=== PATIENT | male | born 1945 | race Caucasian/White ===

== ENCOUNTER 2020-08-02 19:18 | Inpatient (IN) | payer OTHER, MEDICARE, SELFPAY ==
[2020-08-02 20:01] VITALS: BMI 22.6
[2020-08-02 20:07] VITALS: BP 147/101; PULSE 79; RESP 18; TEMP 36.6; O2SAT 98
[2020-08-02 20:12] VITALS: BMI 22.7
[2020-08-02 20:21] VITALS: RESP 16; O2SAT 95
--- NOTE | 2020-08-02 20:45 | PCM.HP.STD ---
Problem List (1) Abnormal loss of weight Status: Acute (2) Fall Status: Acute (3) HLD (hyperlipidemia) Status: Chronic (4) HTN (hypertension) Status: Chronic (5) History of brain tumor Status: Chronic (6) Tobacco use Status: Chronic History of Present Illness Date of Admission: 08/02/20 Chief Complaint: Fall, generalized weakness The patient is a 75 year old [place] M with history of remote brain surgery 1998, benign tumor as per the patient, chronic smoker 1 pack/day since age of 15, other comorbidities as mentioned above went to [facility] pulmonary ED after he had a fall today. Patient states he has gait incoordination, balance and slow walking. Had mild lumbar back pain after fall. Patient is also slow to react, difficulty recall since probably mild cognitive deficit probably after brain surgery. As per EMS report, family also observed patient was acting not right for the last week and has not been eating or drinking lately. As per family, 1 month history of gradual weakness weight loss 20 pounds and decreased oral intake. Patient ambulation ability has significantly decreased in last 2 days. Vital signs in ED temperature 98.6 ?F, heart rate 64, BP 137/82, respiratory rate 18, pulse ox 99% on room air. Significant abnormal labs leukocytosis, WBC 12.9 thousand, mild lymphopenia. Hemoglobin 15.9, platelet 221,000. Chemistry shows K3.4, BUN/creatinine 14/1.0, bicarb 28.5. Glucose 107. Liver chemistry AST 107, ALT 39, alkaline phos 1.86. TB 0.7, albumin 3.0, globulin 4.8, A/G ratio 0.6. Lactic acid was elevated 2.3, repeat normal 1.9. Chest x-ray no acute cardiopulmonary findings. CT head left frontal encephalomalacia, atrophy, but no acute intracranial findings. CT abdomen with contrast reported large areas of abnormal attenuation of liver, suspect metastatic lesions. Nodule of left lung lobe. Pancreas, kidneys and spleen normal except left renal cyst. Negative for obstructive or inflammatory bowel disease. Enlarged prostate. Negative for adenopathy, DJD spine. As per report there is no mention about the size of the liver attenuation or nodules. High-sensitivity troponin 5.2, low, 6.4, NT proBNP 232, although no clear indication why troponins and BNP were done. EKG normal sinus rhythm with PVC at 85 beats per 1. QTC 495 ms. Past Medical History Past Medical History (Chronic Problems): Chronic Problems History of brain tumor (Chronic) Tobacco use (Chronic) HLD (hyperlipidemia) (Chronic) HTN (hypertension) (Chronic) Allergies atorvastatin Adverse Reaction (Verified 08/02/20 18:08) Other simvastatin Adverse Reaction (Verified 08/02/20 18:08) Other Home Medications: Ambulatory Orders Medication Instructions Recorded Aspirin [Aspirin, Baby] 81 mg PO DAILY@0800 08/02/20 Cholecalciferol (Vitamin D3) 2,000 unit PO DAILY 08/02/20 [Vitamin D3] Lisinopril/Hydrochlorothiazide 1 ea PO DAILY 08/02/20 [Lisinopril-Hctz 20-12.5 mg Tab] Rosuvastatin Calcium 10 mg PO QHS 08/02/20 Smoking Status: Current every day smoker Tobacco Use: Cigarettes Review of Systems Constitutional: Reports: Anorexia, Malaise, Weakness, Fatigue. Denies: Chills, Fever, Weight Change HEENT: Denies: Head Aches, Sinus Congestion, Sinus Drainage Cardiovascular: Denies: Chest Pain, Palpitations Respiratory: Reports: Shortness of Breath. Denies: Cough, Shortness of breath at rest, Sputum production Gastrointestinal: Reports: Constipation. Denies: Abdominal Pain, Nausea, Vomiting Genitourinary: Denies: Dysuria Musculoskeletal: Reports: Back Pain, Joint Pain. Denies: Joint Tenderness Skin: Denies: Rash, Wounds Neurological: Reports: Balance problems, Incoordination. Denies: Focal weakness, Numbness, Tingling Psychiatric: Reports: Anxiety. Denies: Depression, Homicidal Ideations, Suicidal Ideations Hematologic/ Lymphatic: Denies: Easy Bruising, Easy Bleeding VTE Information - Inpt Only VTE Present on Admission: No VTE Mechan Device Prophylaxis: None VTE Pharm Prophylaxis ordered?: Yes Objective: General: Alert, Oriented x3, Cooperative HEENT: Atraumatic, PERRLA, EOMI, Normocephalic Oral: No Gingival or Mucosal Lesions/ Ulcerations Neck: Supple, No JVD, Negative Carotid Bruits Lungs: Air entry diminished in bilateral lung bases. No crepitation/rhonchi/wheezing Cardiovascular: Regular rate, Regular Rhythm, Normal S1, Normal S2, No murmurs Abdomen: Bowel Sounds Present, Soft, Non Tender, Non-Distended : No renal angle tenderness. No suprapubic tenderness. Extremities: No edema, Capillary Refill Less than 3 Seconds Skin: Dry with scaling and a scab, chronic mainly dorsal side both upper extremity distribution. No ulcer. Musculoskeletal: No Tenderness to Palpation of Joints or Extremities Neurological: Slow to respond, left facial droop, chronic. Rest cranial nerves intact. Deep Tendon Reflexes 2+/4 and Symmetrical, Neuro grossly intact Psych/Mental Status: Slow to respond, difficulty in recollection. Mild cognitive deficit - Physical Exam Vitals/I&O's: Vital Signs Temp Pulse Resp BP Pulse Ox 97.8 F 79 16 147/101 H 95 08/02/20 20:07 08/02/20 20:07 08/02/20 20:21 08/02/20 20:07 08/02/20 20:30 Oxygen Delivery Method Room Air Weight: 162 lb 7.691 oz Body Mass Index (BMI) 22.6 Current Medications Acetaminophen (Acetaminophen 325 Mg Tablet) 650 mg PO Q6H PRN PRN PRN Reason: Pain Score 1-10/Temp > 100.7 F Al Hydroxide/Mg Hydroxide (Mag Hydrox/Al Hydrox/Simeth 30 Ml Udc) 30 ml PO Q6H PRN PRN PRN Reason: Gastric Burning Albuterol Sulfate (Albuterol 2.5 Mg/3 Ml Vial.Neb.) 2.5 mg INHALATION Q2H PRN PRN PRN Reason: Dyspnea, wheezing Cholecalciferol (Cholecalciferol (Vit D3) 1,000 Unit (25mcg)) 2,000 unit PO DAILY JULISSA Famotidine (Famotidine 20 Mg Tablet) 20 mg PO BID JULISSA Guaifenesin (Guaifenesin 10 Ml Udc (200mg/10ml)) 20 ml PO Q4H PRN PRN PRN Reason: COUGH Hydralazine HCl (Hydralazine 20 Mg/Ml Vial) 10 mg IV Q4H PRN PRN PRN Reason: SBP > 160 Sodium Chloride () 1,000 mls @ 100 mls/hr IV .Q10H JULISSA Stop: 08/03/20 05:09 Lisinopril (Lisinopril 20 Mg Tablet) 20 mg PO DAILY JULISSA Magnesium Hydroxide (Magnesium Hydroxide 30 Ml Udc) 30 ml PO DAILY PRN PRN PRN Reason: Constipation Melatonin (Melatonin 3 Mg Tablet) 3 mg PO QHS PRN PRN PRN Reason: INSOMNIA Morphine Sulfate (Morphine 2 Mg/Ml Syringe) 2 mg IV Q3H PRN PRN PRN Reason: Pain Score 6-10 Nicotine (Nicotine 21 Mg Patch) 21 mg TD DAILY JULISSA Nitroglycerin (Nitroglycerin (Inpatient Use) 0.4 Mg Tab.Subl) 0.4 mg SL Q5M PRN PRN Reason: CARDIAC/CHEST PAIN Nutritional Formula (Lactose Free) (Ensure Enlive 120 Ml Liquid) 120 ml PO 4X/DAY JULISSA Ondansetron HCl (Ondansetron 4 Mg/2 Ml Vial) 4 mg IV Q8H PRN PRN PRN Reason: NAUSEA/VOMITING Oxycodone HCl (Oxycodone 5 Mg Tablet) 5 mg PO Q4H PRN PRN PRN Reason: Pain Score 4-5 Prochlorperazine Edisylate (Prochlorperazine 10 Mg/2 Ml Vial) 5 mg IV Q4H PRN PRN PRN Reason: Breakthrough nausea/vomiting Psyllium Hydrophilic Mucilloid (Psyllium 1 Packet) 1 packet PO DAILY PRN PRN PRN Reason: Constipation Senna/Docusate Sodium (Senna/Docusate Sodium 1 Tablet) 2 tablet PO BID PRN PRN PRN Reason: Constipation Sodium Chloride (0.9% Saline Lock 10 Ml Syringe) 10 - 40 ml IV UD PRN PRN Reason: SALINE FLUSH Throat Lozenges (Benzocaine/Menthol 1 Lozenge) 1 lozenge MUCOUS MEM Q2H PRN PRN PRN Reason: SORE THROAT Assessment/Plan All Active Problems Abnormal loss of weight (Acute) Fall (Acute) The patient is a 75 year old [place] M with history of remote brain surgery 1998, benign tumor as per the patient, is directly admitted on [facility] for further evaluation of generalized weakness, loss of weight and fall. 1. Generalized weakness, loss of weight with history of brain tumor, although reported benign, raise suspicion for neoplasia/malignancy: Patient is being admitted on [facility]. IV fluid normal saline at 100 mill per hour. Oncology consult Dr. Gonzalez. Abdominal ultrasound ordered to look for metastatic nodules although in the CT chest reported pancreas kidneys except left renal cyst, spleen normal. LDH tomorrow a.m. 2. Fall with mild lumbar back pain. PT and OT. No significant point tenderness, mild pain. Patient states he had pain after fall but does not have chronic back pain. CPK tomorrow a.m. 3. Hypertension: Blood pressure is controlled. 4. Dyslipidemia: Fasting blood work tomorrow a.m. 5. History of brain tumor as per patient benign: Details of the neurological tumor are unavailable. Patient has surgical scar over left temporal region. 6. Chronic cigarette smoking: Patient started smoking at the age of 15, still smokes a pack per day. VTE prophylaxis: Lovenox 40 subcu daily.Discontinue if platelet count drops less than 50,000 or hemoglobin less than 8 g% Living will/advanced directive/end of life care: Patient does not have living will or advanced directive. After discussion of benefits/risks procedures involved with full code, DNR CC arrest and DNR CC, the patient understood but not decided about which options to choose. He he want further to discuss with his . For the time being, will put full code. Total time spent in [id number] encounter in discussion of advanced directive 16 minutes. Inpatient E&M: 75201 Init Hosp L3 Procedures: 89920 Advncd Care Plan 30 Min
[2020-08-02] MEDS: 0.9% Normal Saline 1,000 ML 100 ML IV (20:51)
[2020-08-02] MEDS: 0.9% Saline Lock 10 ML Syringe IV (20:51)
[2020-08-02] MEDS: Famotidine 20 MG Tablet PO (21:02)
[2020-08-02] MEDS: Potassium Chloride Oral Tablet 20 MEQ 40 MEQ PO (21:02)
[2020-08-02] MEDS: Acetaminophen 325 MG Tablet 650 MG PO (21:03)
[2020-08-02 21:12] LABS: Absolute Lymphocyte Count 3.07 X10^3/uL (0.83-4.51); Absolute Neutrophil Count 8.3 X10^3/uL (2.0-7.7); Basophil# 0.04 X10^3/uL; Basophil% 0.3 % (0-1); Eosinophils% 0.8 % (0-5); Hematocrit 46.5 % (40-54); Hemoglobin 14.7 g/dL (13.0-16.5); Lymphocyte # 3.07 X10^3/ul (4.0); Lymphocyte % 25.2 % (19-41); Mean Corp Hgb Conc 31.6 g/dL (32-36); Mean Corpuscular Hgb 27.8 pg (27.0-32.0); Mean Corpuscular Volume 88.1 fL (80-94); Mean Platelet Vol. 9.3 fl (6.2-12.0); Monocyte# 0.66 X10^3/uL; Monocyte% 5.4 % (0-10); NRBC Flagged by Analyzer 0 % (0-5); Neutrophil # 8.27 X10^3/uL (2.7-7.7); Platelet Count 196 K/mm3 (150-450); RBC Distribution Width SD 47.8 fl (35.1-43.9); Red Blood Count 5.28 M/mm3 (4.6-6.2); White Blood Count 12.2 K/mm3 (4.4-11.0)
[2020-08-02 21:15] LABS: Magnesium 2.2 mg/dL (1.6-2.6)
[2020-08-02 21:16] LABS: International Normalized Ratio 1.2; Partial Thromboplast Time 33.2 Seconds (24.1-36.2); Prothrombin Time (Protime)PT. 15.1 SECONDS (11.7-14.9)
[2020-08-02] MEDS: Enoxaparin 40 MG/0.4 ML Syringe SC (21:52)
[2020-08-02] MEDS: Senna/Docusate Sodium 1 Tablet 2 TABLET PO (21:52)
[2020-08-03 03:27] VITALS: BP 136/74; PULSE 62; RESP 16; TEMP 36.8; O2SAT 94
[2020-08-03 05:39] LABS: Absolute Neutrophil Count 6.1 X10^3/uL (2.0-7.7); Basophil# 0.03 X10^3/uL; Basophil% 0.3 % (0-1); Eosinophil# 0.09 X10^3/uL; Hematocrit 45.3 % (40-54); Hemoglobin 14.2 g/dL (13.0-16.5); Lymphocyte % 27.6 % (19-41); Mean Corp Hgb Conc 31.3 g/dL (32-36); Mean Corpuscular Hgb 27.7 pg (27.0-32.0); Mean Corpuscular Volume 88.5 fL (80-94); Mean Platelet Vol. 9.4 fl (6.2-12.0); Monocyte# 0.56 X10^3/uL; NRBC Flagged by Analyzer 0 % (0-5); Neutrophil % 64.8 % (47-70); Platelet Count 165 K/mm3 (150-450); RBC Distribution Width CV 14.9 % (11.6-14.6); RBC Distribution Width SD 47.8 fl (35.1-43.9); Red Blood Count 5.12 M/mm3 (4.6-6.2); White Blood Count 9.4 K/mm3 (4.4-11.0)
[2020-08-03 06:01] LABS: ALB/GLOB Ratio 0.6 RATIO (0.9-2.4); AST(SGOT) 97 U/L (15-37); Alanine Aminotransfer ALT/SGPT 31 U/L (16-61); Albumin, Serum 2.5 g/dL (3.2-5.0); Alkaline Phosphatase 438 U/L (45-117); Anion Gap 6 (5-15); BUN 13 mg/dL (7-18); BUN/Creat Ratio 19.7 RATIO (10-20); CPK Total, Creatine Kinase 44 U/L (39-308); Calcium,Total 12.2 mg/dL (8.5-10.1); Chloride 109 mmol/L (98-107); Creatinine, Serum 0.66 mg/dL (0.70-1.30); EST Glomerular Filtration Rate 125 mL/min (>60); Est Glom Filt Rate - Afr Amer 151 mL/min (>60); Estimated Creatinine Clearance 66.53 ml/min; Glucose 88 mg/dL (74-106); LDH 296 U/L (87-241); Potassium 3.5 mmol/L (3.5-5.1); Protein, Total 6.5 g/dL (6.4-8.2); Sodium Level 142 mmol/L (136-145)
[2020-08-03 07:51] VITALS: O2SAT 96
--- NOTE | 2020-08-03 09:34 | PCM.NTREPORT ---
Nutrition Therapy Report - History Nutrition Services has been consulted to:: Manage nutrient details of diet order Current diet / nutrition support order:: regular, ensure enlive 120mL 4x/day - Anthropometric Measurements Height:: 5 ft 11 in Weight:: 74.072 kg Body Mass Index (BMI):: 22.7 - Relevant Labs Relevant Labs:: WBC 12.2 K/mm3 (4.4-11.0) H 08/02/20 20:48 MCHC 31.3 g/dL (32-36) L 08/03/20 05:16 RDW Std Deviation 47.8 fl (35.1-43.9) H 08/03/20 05:16 RDW Coeff of [place] 14.9 % (11.6-14.6) H 08/03/20 05:16 Absolute Neuts (auto) 8.3 X10^3/uL (2.0-7.7) H 08/02/20 20:48 PT 15.1 SECONDS (11.7-14.9) H 08/02/20 20:48 Chloride 109 mmol/L (98-107) H 08/03/20 05:16 Creatinine 0.66 mg/dL (0.70-1.30) L 08/03/20 05:16 Calcium 12.2 mg/dL (8.5-10.1) H 08/03/20 05:16 Phosphorus 2.0 mg/dL (2.5-4.9) L 08/02/20 20:48 AST 97 U/L (15-37) H 08/03/20 05:16 Alkaline Phosphatase 438 U/L (45-117) H 08/03/20 05:16 Lactate Dehydrogenase 296 U/L (87-241) H 08/03/20 05:16 Albumin 2.5 g/dL (3.2-5.0) L 08/03/20 05:16 Albumin/Globulin Ratio 0.6 RATIO (0.9-2.4) L 08/03/20 05:16 - Assessment Food / Nutrition-Related History:: Pt reports poor appetite/intake over past 2 months. States he was eating very little because nothing tasted good. 50% of fruit cup consumed at breakfast this AM. Pt states wt was 217# approx. 3 months ago at the [place]. [facility] 163.3#- 54.7#/25% wt loss x 3 months is significant for severe malnutrition. - Nutrition Diagnosis Problem / Etiology / Signs & Symptoms (PES):: severe, acute malnutrition related to inadequate energy intake w/ increased energy needs d/t suspected metastatic cancer as evidenced by estimated PO intake meeting <50% of nutritional needs x 2 months, wt loss of 54.7#/25% x 3 months. Evidence of Malnutrition Exists:: Yes Severe PCM:: Acute Illness - Nutrition Intervention Nutrition Prescription:: 2226-2719 calories/day (1.3xRMR). 100-110 calories/day (1.5g/kg). 2250mL fluid/day (30mL/kg) - Food / Nutrient Delivery Interventions Summary of nutrition intervention:: Discussed ONS w/ pt-agreeable to Ensure Enlive w/ medpass. Will try magic cup w/ lunch and fortify foods when possible. Nutrition support ordered as / adjusted to:: regular diet, fortified foods; ensure enlive 120mL 4x/day, magic cup w/ lunch Nutrition education provided?: Yes - MNT Monitoring Further MNT monitoring and evaluation required?: Yes MNT Follow-up in:: 3-5 days
[2020-08-03 09:44] VITALS: BMI 22.7
[2020-08-03 10:30] VITALS: BP 138/86; PULSE 57; RESP 16; TEMP 36.5; O2SAT 97
--- NOTE | 2020-08-03 10:46 | EKG12_ITS ---
Test Reason : ARRYTHMIA Blood Pressure : / mmHG Vent. Rate : 057 BPM Atrial Rate : 057 BPM P-R Int : 142 ms QRS Dur : 100 ms QT Int : 430 ms P-R-T Axes : 006 018 051 degrees QTc Int : 418 ms Sinus bradycardia with sinus arrhythmia Otherwise normal ECG When compared with ECG of 15-MAR-2001 10:03, No significant change was found Confirmed by KAJAL GONZALEZ, MANUELA ([id number]), editor managing newspaper JULIO NOONAN ([id number]) on 08/06/2020 10:26:07 AM Referred By: MAYE Confirmed By:MANUELA RDZ MD
[2020-08-03] MEDS: Lisinopril 20 MG Tablet PO (10:49)
[2020-08-03] MEDS: Famotidine 20 MG Tablet PO ×2 (10:49→21:43)
[2020-08-03] MEDS: Polyethylene Glycol 3350 17 GM PACKET PO (10:49)
[2020-08-03] MEDS: Enoxaparin 40 MG/0.4 ML Syringe SC (10:49)
[2020-08-03] MEDS: Senna/Docusate Sodium 1 Tablet 2 TABLET PO (10:50)
[2020-08-03] MEDS: Aspirin 81 MG TAB.CHEW PO (10:50)
--- NOTE | 2020-08-03 12:55 | PN_ITS ---
<Jordyn Hankins AX SURVEY WORKER - Last Filed: 08/03/20 13:02> Patient Problems: Active and Suspected Problems Abnormal loss of weight (Acute) Fall (Acute) Subjective: Patient seen and examined. No acute events overnight. Patient denies current complaints. Denies abdominal pain, nausea, vomiting. Reports recent weight loss and loss of appetite. States nothing tastes good. Discussed plan of care including plan for liver biopsy and patient is agreeable to plan. - Physical Exam Vitals/I&O's: Vital Signs Temp Pulse Resp BP Pulse Ox 97.7 F L 57 L 16 138/86 H 97 08/03/20 10:30 08/03/20 10:30 08/03/20 10:30 08/03/20 10:30 08/03/20 10:30 Oxygen Delivery Method Room Air Weight: 163 lb 4.813 oz Body Mass Index (BMI) 22.7 Intake and Output for Last 24 Hours 08/01/20 08/02/20 08/04/20 23:59 23:59 00:59 Intake Total 1999 Balance 1999 General: Alert, Oriented x3, Cooperative HEENT: Atraumatic, PERRLA, EOMI, Normocephalic Neck: Supple, No JVD, Negative Carotid Bruits Lungs: Clear to auscultation, Normal air movement Cardiovascular: Regular rate, No murmurs Abdomen: Bowel Sounds Present, Soft, Non Tender, Non-Distended Extremities: No clubbing, No cyanosis, No edema, Capillary Refill Less than 3 Seconds Skin: No rashes, No breakdown Musculoskeletal: No Tenderness to Palpation of Joints or Extremities Neurological: Cranial nerves II-XII grossly intact, Neuro grossly intact Psych/Mental Status: Normal Affect, Appropriate Laboratory Results 08/02/20 20:48: PT 15.1 H, INR 1.2, APTT 33.2 08/02/20 20:48: Magnesium 2.2 08/02/20 20:48: Phosphorus 2.0 L 08/02/20 20:48: WBC 12.2 H, RBC 5.28, Hgb 14.7, Hct 46.5, MCV 88.1, MCH 27.8, MCHC 31.6 L, RDW Std Deviation 47.8 H, RDW Coeff of [place] 15.0 H, Plt Count 196, MPV 9.3, Immature Gran % (Auto) 0.300, Neut % (Auto) 68.0, Lymph % (Auto) 25.2, Plumas % (Auto) 5.4, Eos % (Auto) 0.8, Baso % (Auto) 0.3, Absolute Neuts (auto) 8.3 H, Absolute Lymphs (auto) 3.07, Nucleated RBC % 0 08/03/20 05:16: WBC 9.4, RBC 5.12, Hgb 14.2, Hct 45.3, MCV 88.5, MCH 27.7, MCHC 31.3 L, RDW Std Deviation 47.8 H, RDW Coeff of [place] 14.9 H, Plt Count 165, MPV 9.4, Immature Gran % (Auto) 0.300, Neut % (Auto) 64.8, Lymph % (Auto) 27.6, Plumas % (Auto) 6.0, Eos % (Auto) 1.0, Baso % (Auto) 0.3, Absolute Neuts (auto) 6.1, Absolute Lymphs (auto) 2.60, Nucleated RBC % 0 08/03/20 05:16: Sodium 142, Potassium 3.5, Chloride 109 H, Carbon Dioxide 27.0, Anion Gap 6, BUN 13, Creatinine 0.66 L, Estim Creat Clear Calc 66.53, Est GFR (MDRD) Af Amer 151, Est GFR (MDRD) Non-Af 125, BUN/Creatinine Ratio 19.7, Glucose 88, Calcium 12.2 H, Total Bilirubin 0.70, AST 97 H, ALT 31, Alkaline Phosphatase 438 H, Lactate Dehydrogenase 296 H, Total Creatine Kinase 44, Total Protein 6.5, Albumin 2.5 L, Globulin 4.0, Albumin/Globulin Ratio 0.6 L 08/03/20 05:16: Tumor Marker AFP Pending, Carcinoembryonic Ag Pending, CA 19-9 Antigen Pending Current Medications Acetaminophen (Acetaminophen 325 Mg Tablet) 650 mg PO Q6H PRN PRN PRN Reason: Pain Score 1-10/Temp > 100.7 F Last Admin: 08/02/20 21:03 Dose: 650 mg Documented by: Al Hydroxide/Mg Hydroxide (Mag Hydrox/Al Hydrox/Simeth 30 Ml Udc) 30 ml PO Q6H PRN PRN PRN Reason: Gastric Burning Albuterol Sulfate (Albuterol 2.5 Mg/3 Ml Vial.Neb.) 2.5 mg INHALATION Q2H PRN PRN PRN Reason: Dyspnea, wheezing Aspirin (Aspirin 81 Mg Tab.Chew) 81 mg PO DAILY@0800 [facility] Last Admin: 08/03/20 10:50 Dose: 81 mg Documented by: Cholecalciferol (Cholecalciferol (Vit D3) 1,000 Unit (25mcg)) 2,000 unit PO DAILY [facility] Last Admin: 08/03/20 10:51 Dose: 2,000 unit Documented by: Enoxaparin Sodium (Enoxaparin 40 Mg/0.4 Ml Syringe) 40 mg SC DAILY [facility] Last Admin: 08/03/20 10:49 Dose: 40 mg Documented by: Famotidine (Famotidine 20 Mg Tablet) 20 mg PO BID [facility] Last Admin: 08/03/20 10:49 Dose: 20 mg Documented by: Hydralazine HCl (Hydralazine 20 Mg/Ml Vial) 10 mg IV Q4H PRN PRN PRN Reason: SBP > 180 Lisinopril (Lisinopril 20 Mg Tablet) 20 mg PO DAILY [facility] Last Admin: 08/03/20 10:49 Dose: 20 mg Documented by: Melatonin (Melatonin 3 Mg Tablet) 3 mg PO QHS PRN PRN PRN Reason: INSOMNIA Morphine Sulfate (Morphine 2 Mg/Ml Syringe) 2 mg IV Q3H PRN PRN PRN Reason: Pain Score 6-10 Nicotine (Nicotine 21 Mg Patch) 21 mg TD DAILY [facility] Last Admin: 08/03/20 10:48 Dose: 21 mg Documented by: Nitroglycerin (Nitroglycerin (Inpatient Use) 0.4 Mg Tab.Subl) 0.4 mg SL Q5M PRN PRN Reason: CARDIAC/CHEST PAIN Nutritional Formula (Lactose Free) (Ensure Enlive 120 Ml Liquid) 120 ml PO 4X/DAY [facility] Last Admin: 08/03/20 10:50 Dose: 120 ml Documented by: Ondansetron HCl (Ondansetron 4 Mg/2 Ml Vial) 4 mg IV Q8H PRN PRN PRN Reason: NAUSEA/VOMITING Oxycodone HCl (Oxycodone 5 Mg Tablet) 5 mg PO Q4H PRN PRN PRN Reason: Pain Score 4-5 Polyethylene Glycol (Polyethylene Glycol 3350 17 Gm Packet) 17 gm PO DAILY [facility] Last Admin: 08/03/20 10:49 Dose: 17 gm Documented by: Prochlorperazine Edisylate (Prochlorperazine 10 Mg/2 Ml Vial) 5 mg IV Q4H PRN PRN PRN Reason: Breakthrough nausea/vomiting Psyllium Hydrophilic Mucilloid (Psyllium 1 Packet) 1 packet PO DAILY PRN PRN PRN Reason: Constipation Rosuvastatin Calcium (Rosuvastatin Calcium 10 Mg Tablet) 10 mg PO QHS [facility] Last Admin: 08/02/20 21:51 Dose: 10 mg Documented by: Senna/Docusate Sodium (Senna/Docusate Sodium 1 Tablet) 2 tablet PO BID [facility] Last Admin: 08/03/20 10:50 Dose: 2 tablet Documented by: Sodium Chloride (0.9% Saline Lock 10 Ml Syringe) 10 - 40 ml IV UD PRN PRN Reason: SALINE FLUSH Last Admin: 08/02/20 20:51 Dose: 10 ml Documented by: Throat Lozenges (Benzocaine/Menthol 1 Lozenge) 1 lozenge MUCOUS MEM Q2H PRN PRN PRN Reason: SORE THROAT Medical Necessity - Tobacco Use Smoking Status: Current every day smoker Tobacco Use: Cigarettes Assessment/Plan All Active Problems Abnormal loss of weight (Acute) Fall (Acute) 1. Liver lesions, concerning for metastatic lesions, left lung nodule-noted on outside facility CT abdomen/pelvis/chest. Abdominal ultrasound ordered. Liver biopsy ordered. Oncology consulted. Outside images to be scanned into the system. 2. Functional decline, weight loss-possibly secondary to #1. PT/OT. Plan per above. 3. Hypertension-stable, continue lisinopril/HCTZ. 4. Hyperlipidemia-continue statin. 5. History of benign brain tumor 6. Chronic tobacco use-encouraged cessation. DVT prophylaxis-Lovenox subcu This patient was seen by SANNA Blevins under the supervision of Dr. Pierce. <Leslie Pierce - Last Filed: 08/03/20 15:20> - Physical Exam Vitals/I&O's: Vital Signs Temp Pulse Resp BP Pulse Ox 97.7 F L 57 L 16 138/86 H 97 08/03/20 10:30 08/03/20 10:30 08/03/20 10:30 08/03/20 10:30 08/03/20 10:30 Oxygen Delivery Method Room Air Weight: 163 lb 4.813 oz Body Mass Index (BMI) 22.7 Intake and Output for Last 24 Hours 08/01/20 08/02/20 08/04/20 23:59 23:59 00:59 Intake Total 2219 Balance 2219 Laboratory Results 08/02/20 20:48: PT 15.1 H, INR 1.2, APTT 33.2 08/02/20 20:48: Magnesium 2.2 08/02/20 20:48: Phosphorus 2.0 L 08/02/20 20:48: WBC 12.2 H, RBC 5.28, Hgb 14.7, Hct 46.5, MCV 88.1, MCH 27.8, MCHC 31.6 L, RDW Std Deviation 47.8 H, RDW Coeff of [place] 15.0 H, Plt Count 196, MPV 9.3, Immature Gran % (Auto) 0.300, Neut % (Auto) 68.0, Lymph % (Auto) 25.2, Plumas % (Auto) 5.4, Eos % (Auto) 0.8, Baso % (Auto) 0.3, Absolute Neuts (auto) 8.3 H, Absolute Lymphs (auto) 3.07, Nucleated RBC % 0 08/03/20 05:16: WBC 9.4, RBC 5.12, Hgb 14.2, Hct 45.3, MCV 88.5, MCH 27.7, MCHC 31.3 L, RDW Std Deviation 47.8 H, RDW Coeff of [place] 14.9 H, Plt Count 165, MPV 9.4, Immature Gran % (Auto) 0.300, Neut % (Auto) 64.8, Lymph % (Auto) 27.6, [place] % (Auto) 6.0, Eos % (Auto) 1.0, Baso % (Auto) 0.3, Absolute Neuts (auto) 6.1, Absolute Lymphs (auto) 2.60, Nucleated RBC % 0 08/03/20 05:16: Sodium 142, Potassium 3.5, Chloride 109 H, Carbon Dioxide 27.0, Anion Gap 6, BUN 13, Creatinine 0.66 L, Estim Creat Clear Calc 66.53, Est GFR (MDRD) Af Amer 151, Est GFR (MDRD) Non-Af 125, BUN/Creatinine Ratio 19.7, Glucose 88, Calcium 12.2 H, Total Bilirubin 0.70, AST 97 H, ALT 31, Alkaline Phosphatase 438 H, Lactate Dehydrogenase 296 H, Total Creatine Kinase 44, Total Protein 6.5, Albumin 2.5 L, Globulin 4.0, Albumin/Globulin Ratio 0.6 L 08/03/20 05:16: Tumor Marker AFP Pending, Carcinoembryonic Ag Pending, CA 19-9 Antigen Pending Current Medications Acetaminophen (Acetaminophen 325 Mg Tablet) 650 mg PO Q6H PRN PRN PRN Reason: Pain Score 1-10/Temp > 100.7 F Last Admin: 08/02/20 21:03 Dose: 650 mg Documented by: Al Hydroxide/Mg Hydroxide (Mag Hydrox/Al Hydrox/Simeth 30 Ml Udc) 30 ml PO Q6H PRN PRN PRN Reason: Gastric Burning Albuterol Sulfate (Albuterol 2.5 Mg/3 Ml Vial.Neb.) 2.5 mg INHALATION Q2H PRN PRN PRN Reason: Dyspnea, wheezing Aspirin (Aspirin 81 Mg Tab.Chew) 81 mg PO DAILY@0800 [facility] Last Admin: 08/03/20 10:50 Dose: 81 mg Documented by: Cholecalciferol (Cholecalciferol (Vit D3) 1,000 Unit (25mcg)) 2,000 unit PO DAILY [facility] Last Admin: 08/03/20 10:51 Dose: 2,000 unit Documented by: Enoxaparin Sodium (Enoxaparin 40 Mg/0.4 Ml Syringe) 40 mg SC DAILY [facility] Last Admin: 08/03/20 10:49 Dose: 40 mg Documented by: Famotidine (Famotidine 20 Mg Tablet) 20 mg PO BID [facility] Last Admin: 08/03/20 10:49 Dose: 20 mg Documented by: Hydralazine HCl (Hydralazine 20 Mg/Ml Vial) 10 mg IV Q4H PRN PRN PRN Reason: SBP > 180 Lisinopril (Lisinopril 20 Mg Tablet) 20 mg PO DAILY [facility] Last Admin: 08/03/20 10:49 Dose: 20 mg Documented by: Melatonin (Melatonin 3 Mg Tablet) 3 mg PO QHS PRN PRN PRN Reason: INSOMNIA Morphine Sulfate (Morphine 2 Mg/Ml Syringe) 2 mg IV Q3H PRN PRN PRN Reason: Pain Score 6-10 Nicotine (Nicotine 21 Mg Patch) 21 mg TD DAILY [facility] Last Admin: 08/03/20 10:48 Dose: 21 mg Documented by: Nitroglycerin (Nitroglycerin (Inpatient Use) 0.4 Mg Tab.Subl) 0.4 mg SL Q5M PRN PRN Reason: CARDIAC/CHEST PAIN Nutritional Formula (Lactose Free) (Ensure Enlive 120 Ml Liquid) 120 ml PO 4X/DAY [facility] Last Admin: 08/03/20 10:50 Dose: 120 ml Documented by: Ondansetron HCl (Ondansetron 4 Mg/2 Ml Vial) 4 mg IV Q8H PRN PRN PRN Reason: NAUSEA/VOMITING Oxycodone HCl (Oxycodone 5 Mg Tablet) 5 mg PO Q4H PRN PRN PRN Reason: Pain Score 4-5 Polyethylene Glycol (Polyethylene Glycol 3350 17 Gm Packet) 17 gm PO DAILY [facility] Last Admin: 08/03/20 10:49 Dose: 17 gm Documented by: Prochlorperazine Edisylate (Prochlorperazine 10 Mg/2 Ml Vial) 5 mg IV Q4H PRN PRN PRN Reason: Breakthrough nausea/vomiting Psyllium Hydrophilic Mucilloid (Psyllium 1 Packet) 1 packet PO DAILY PRN PRN PRN Reason: Constipation Rosuvastatin Calcium (Rosuvastatin Calcium 10 Mg Tablet) 10 mg PO QHS [facility] Last Admin: 08/02/20 21:51 Dose: 10 mg Documented by: Senna/Docusate Sodium (Senna/Docusate Sodium 1 Tablet) 2 tablet PO BID [facility] Last Admin: 08/03/20 10:50 Dose: 2 tablet Documented by: Sodium Chloride (0.9% Saline Lock 10 Ml Syringe) 10 - 40 ml IV UD PRN PRN Reason: SALINE FLUSH Last Admin: 08/02/20 20:51 Dose: 10 ml Documented by: Throat Lozenges (Benzocaine/Menthol 1 Lozenge) 1 lozenge MUCOUS MEM Q2H PRN PRN PRN Reason: SORE THROAT Assessment/Plan Patient seen by Jordyn Hankins NP-Alayna under my supervision Patient was admitted with a complaint of mechanical fall and generalized weakness. Patient states he had had several falls in the last few weeks. He does have a history of brain surgery though he states that he was told the mass was benign after resection in 1998. CT of the abdomen with contrast done showed large areas of abnormal attenuation of the liver which was suspected to be metastatic lesions and an nodule of the left lung lobe. He has been managed for debility due to mechanical fall and metastatic lesions unclear primary. Patient had no complaints at time of review. Review of systems otherwise negative. Labs and vitals reviewed. O/E: Vital Signs Temp Pulse Resp BP Pulse Ox 97.7 F L 57 L 16 138/86 H 97 08/03/20 10:30 08/03/20 10:30 08/03/20 10:30 08/03/20 10:30 08/03/20 10:30 General: Alert, Oriented x3, Cooperative HEENT: Atraumatic, PERRLA, EOMI, Normocephalic Neck: Supple, No JVD, Negative Carotid Bruits Lungs: Clear to auscultation, Normal air movement Cardiovascular: Regular rate, No murmurs Abdomen: Bowel Sounds Present, Soft, Non Tender, Non-Distended Extremities: No clubbing, No cyanosis, No edema, Capillary Refill Less than 3 Seconds Skin: No rashes, No breakdown Musculoskeletal: No Tenderness to Palpation of Joints or Extremities Neurological: Cranial nerves II-XII grossly intact, Neuro grossly intact Psych/Mental Status: Normal Affect, Appropriate Plan is PT OT consult on account of debility due to mechanical falls. Liver biopsy and abdominal ultrasound also ordered on account of metastatic liver lesions. He also had a lung nodule noted on CT imaging done at outside facility. Oncology consulted. Await recs. Rest as per SANNA Blevins's notes which I have reviewed and endorsed. OBSV E&M: [id number] Subsequent observation care L2
[2020-08-03 17:55] VITALS: BP 154/82; PULSE 60; RESP 16; TEMP 36.6; O2SAT 99
[2020-08-03 22:54] VITALS: BP 143/67; PULSE 56; RESP 20; TEMP 36.7; O2SAT 98
[2020-08-04] VITALS (15 sets, daily range): BP systolic 120–183; BP diastolic 70–96; PULSE 51–100; RESP 13–21; TEMP 36.4–36.8; O2SAT 75–100
--- NOTE | 2020-08-04 | IMM_PTH ---
PATIENT: SOPHIA PAUL LOC: MS3 U#:[id number] AGE/SX: 75/M ROOM: AK311 RE08/03/[address]: Dr. Cristobal Carballo DO : 1945 BED: 1 DIS: 08/06/2020 SPEC #: [id number] RECD: 08/05/20 12:38 STATUS: SOUJing REQ #: [id number] NAY: 08/04/20 00:[address]: Cristobal Carballo DEPT: IMMUNOHISTOCHEMISTRY RECD BY: Michelle Ellis ENTERED: 08/05/20 12:40 SP TYPE: IMMUNO OTHR DR: MD Dr. Karen Little MD Tissues: Liver, NOS Procedures: Synapto (add) RCC (add) NAPSIN A (add) BCL-2 (add) Ken Ret (add) CD56 (add) CEA (add) CHROMO (add) CK20 (add) CK5-6 (add) CK7 (add) CK8 (add) HERNANDEZ-2 (add) HEP PAR (add) KI-67 (add) P53 (add) TTF1 (add) Vimentin (add) 34BE12 (add) NEUROFIL (add) Pankeratin (initial) MELAN-A (add) P40 (add) CDX2 (add) CD44 (add) PSAP (add) NSE (add) S-100 (add) PHYSICIAN & INSTITUTION [facility] [address] [place] [id number] SPECIMEN INFORMATION: Tissue Source: Right lobe liver Clinical Info: Liver lesions Specimen Number: [id number] CPT code: 54491, 44536 x27 METHODOLOGY: Deparaffinized sections of prefer/formalin-fixed tissue or PAP/DQ stained slides are incubated with monoclonal/polyclonal antibodies/oligonucleotide probes. Localization is made via biotin free immunoperoxidase method. Appropriate controls are performed and reacted as expected. Results on target cell population are indicated in the following table: RESULTS: ANTIBODY / CLONE RESULT AE1-3 (AE1/AE3/PCK26) positive CK7 (OV-TL12/30) positive CK8 (79ythmE65) positive CK20 (KS20.8) negative HERNANDEZ-2 (SP21) positive CDX2 ([id number]) negative Vimentin (V9) positive, variable 34BE12 (34BE12) negative S-100 (4C4.9) negative CD56 (123C3.D5) negative Chromo (LK2H10) negative Synapto (polyclonal) positive, dim TTF-1 (8G7G3/1) negative Napsin A (Rabbit Polyclonal) positive, dim HepPar (OCh1E5) negative RCC (PN-15) negative PSAP (PASE/4LJ) negative CALRET (polyclonal) positive anti-CD44 (SP37) negative CK5-6 (D5 & 1684) negative P40 (BC28) negative CEA (11-7/TF-3HB-1) negative P53 (DO-7) positive, 30%, dim Neurofil (2F11) negative NSE Neuron Specific Enolase positive, focal BCL-2 (bcl-2/100/D5) negative Melan A (A103) negative Ki-67 (30-9) positive These tests were developed and their performance characteristics determined by [facility]. They may not have been cleared or approved by the U.S. Food and Drug Administration. The FDA has determined that such clearance or approval is not necessary. The above immunohistochemical/dualISH markers are ordered and reviewed by the Pathologist. INTERPRETATION: Right lobe liver, CT-guided biopsy: Consistent with metastatic non-small cell carcinoma. See comment. AM:madyson 08/08/2020 Comment: An upper GI, pancreatic or lung primary cannot be excluded. Clinical correlation is necessary.
[2020-08-04] MEDS: 0.9% Normal Saline 1,000 ML 200 ML IV ×2 (08:25→13:21)
--- NOTE | 2020-08-04 08:50 | NURSING ---
pt off unit for test
--- NOTE | 2020-08-04 09:00 | CT_ITS ---
PROCEDURE: CT DIRECTED CORE LIVER BIOPSY INDICATION: Male, 75 years old. METASTATIC LIVER LESIONS, LUNG NODULES PHYSICIAN: Dr. RONEY Calderon CONSENT: Written informed consent was obtained having explained the risks, benefits and alternatives in detail with the patient who accepted the risks and agreed to proceed. Laboratory review and clinical assessment was performed. CONSCIOUS SEDATION PROTOCOL: The Drugs used were: 2 mg Versed, IV., and 50 mcg Fentanyl, IV. The sedation time was: 28 minutes. Conscious sedation was started at 9:35 AM and terminated at 1003 The conscious sedation protocol was independently monitored. RADIATION DOSAGE (If Supplied By Facility): CTDIvol = ( 18 ) mGy, DLP = ( 377.62 ) mGycm Individualized dose optimization techniques were used for this CT. TECHNIQUE: Using CT image guidance with image documentation, a suitable location in the right lobe of the liver was identified. Using an anterior approach, puncture of the liver was uneventful with an 18-gauge core needle system. Four, 18-gauge core samples were obtained, and submitted in formalin to the pathologist for further assessment. Followup CT scan revealed no distinct sequelae. CT/Biopsy/Inj or Needle Placement IMPRESSION: 1. CT directed core needle biopsy of the liver, using CT image guidance with image documentation as described. 2. Conscious Sedation protocol utilized with independent monitoring. Electronically Signed: Paul Flores MD at 10:40 EDT , Service support ,
[2020-08-04] MEDS: fentaNYL 100 MCG/2 ML Ampul IV (09:33)
[2020-08-04] MEDS: Midazolam 2 MG/2 ML Syringe IV (09:34)
[2020-08-04] MEDS: Lidocaine 2% (20 ml mdv) 20 ML Vial INFILT (09:35)
--- NOTE | 2020-08-04 10:00 | ASPIGT_PTH ---
PATIENT: SOPHIA PAUL LOC: MS3 U#:[id number] AGE/SX: 75/M ROOM: AK311 RE08/03/[address]: Dr. Cristobal Carballo DO : 1945 BED: 1 DIS: 08/06/2020 SPEC #: [id number] RECD: 08/04/20 10:30 STATUS: MICHAEL REPhylicia #: [id number] NAY: 08/04/20 10:[address]: Cristobal Carballo DEPT: SURGICAL PATHOLOGY RECD BY: Serenity Jeffries ENTERED: 08/04/20 11:46 SP TYPE: ASP RAD OTHR DR: MD Dr. Karen Little MD Tissues: Liver, NOS Procedures: FNA Specimen Adequacy Gen Path Consultation (on slides) Special Stain Group II Surgery Specimen Level IV Imprint (control) HEADER OPERATION: CT-guided liver biopsy PRE-OP DIAGNOSIS: Liver lesions TISSUE SUBMITTED: Right lobe liver 18-gauge core x4 MICROSCOPIC DIAGNOSIS Right lobe of liver, CT-guided core biopsy: Adenocarcinoma involving liver. See comment. AM:madyson 08/18/2020 COMMENT The specimen is evaluated at the time of biopsy by Dr. Ltitle. Immediate Evaluation = Positive for malignant cells consistent with metastatic carcinoma. Immunohistochemistry ([id number]) supports the above diagnosis but does not favor a particular primary. Upper GI including pancreas and lung primaries cannot be ruled out. Clinical correlation is necessary. This case is reviewed in consultation with Dr. Ledezma of [place] who concurs with the diagnosis. The complete consultative report is viewable in EMR. Case has been reviewed in consultation with Dr. Disla who concurs with the above diagnosis. IDC:[id number] MICROSCOPIC DESCRIPTION Slides are reviewed. GROSS DESCRIPTION Received is one container labeled with the patient's name and not further designated. The specimen consists of three cores of light whelan soft tissue. Each core has an average length of 1.2 cm and a maximal diameter of 0.1 cm. The specimen is totally submitted in one cassette. Six touch imprints (4 DQ and 2 pap) are prepared at the time of core biopsy. / AM:madyson 08/04/20 TC:0 CPT: 11901, 20489
--- NOTE | 2020-08-04 10:45 | CASEMGMT ---
JUAN CARLOS LAKHANI Face to Face with patient for initial transition planning/care coordination assessment. RN CM introduced self and role at [facility]. Patient lying in bed, alert and oriented. Patient willing to participate in assessment and is able to answer all questions appropriately. Care providers, pharmacy, and demographics verified. Patient wishes to discharge home, will monitor need for therapy based on progress, possible HHC at discharge. Patient states he has no further needs or concerns at this time. CM to follow for discharge planning needs that may arise. PCP: ROSALINDA Herrera Specialists: none Preferred Pharmacy: [place] [facility]: yes Living Will/HPOA: none LNOK: significant other Living Arrangements: Patient lives with significant other in a 1 story home with 1 step to enter. Patient states he is independent at home. Transportation: self/significant other DME/HHC: Patient states he has raised toilet at home. Will monitor for need for walker and HHC at discharge. Patient denies previous HHC or SNF. Disposition Plan: Patient to discharge home with family support and follow-up plans in place. Will monitor for FWW and HHC at discharge. Kalli HERNANDEZ, RN, CM
[2020-08-04] MEDS: Famotidine 20 MG Tablet PO ×2 (10:58→22:47)
[2020-08-04] MEDS: Aspirin 81 MG TAB.CHEW PO (10:58)
[2020-08-04] MEDS: Lisinopril 20 MG Tablet PO (11:00)
--- NOTE | 2020-08-04 12:50 | PN_ITS ---
<CrJordyn STEAM SHOVELMAN - Last Filed: 08/04/20 12:57> Patient Problems: Active and Suspected Problems Abnormal loss of weight (Acute) Fall (Acute) Subjective: Patient seen and examined. at bedside. Underwent CT-guided liver biopsy this morning. Patient denies current symptoms or complaints. PT recommending skilled therapy, patient and agreeable to rehab prior to returning home. - Physical Exam Vitals/I&O's: Vital Signs Temp Pulse Resp BP Pulse Ox 98.0 F 60 18 157/81 H 100 08/04/20 11:11 08/04/20 11:11 08/04/20 11:11 08/04/20 11:11 08/04/20 11:11 Oxygen Flow Rate (L/min) [6] 1 Oxygen Flow Rate (L/min) [5] 1 Oxygen Flow Rate (L/min) [4] 1 Oxygen Flow Rate (L/min) [3] 1 Oxygen Flow Rate (L/min) [2] 2 Oxygen Flow Rate (L/min) [1 ( 2 Initial Baseline)] Oxygen Flow Rate (L/min) 1 Oxygen Delivery Method [6] Nasal Cannula Oxygen Delivery Method [5] Nasal Cannula Oxygen Delivery Method [4] Nasal Cannula Oxygen Delivery Method [3] Nasal Cannula Oxygen Delivery Method [2] Nasal Cannula Oxygen Delivery Method [1 ( Nasal Cannula Initial Baseline)] Oxygen Delivery Method Room Air Weight: 163 lb 5.8 oz Body Mass Index (BMI) 22.7 Intake and Output for Last 24 Hours 08/02/20 08/03/20 08/04/20 22:59 23:59 23:59 Intake Total 506.67 / 506.67 Balance 506.67 / 506.67 General: Alert, Oriented x3, Cooperative HEENT: Atraumatic, PERRLA, EOMI, Normocephalic Neck: Supple, No JVD, Negative Carotid Bruits Lungs: Clear to auscultation, Normal air movement Cardiovascular: Regular rate, No murmurs Abdomen: Bowel Sounds Present, Soft, Non Tender, Non-Distended Extremities: No edema, Capillary Refill Less than 3 Seconds Skin: No rashes, No breakdown Musculoskeletal: No Tenderness to Palpation of Joints or Extremities Neurological: Cranial nerves II-XII grossly intact, Neuro grossly intact Psych/Mental Status: Normal Affect, Appropriate Current Medications Acetaminophen (Acetaminophen 325 Mg Tablet) 650 mg PO Q6H PRN PRN PRN Reason: Pain Score 1-10/Temp > 100.7 F Last Admin: 08/02/20 21:03 Dose: 650 mg Documented by: Al Hydroxide/Mg Hydroxide (Mag Hydrox/Al Hydrox/Simeth 30 Ml Udc) 30 ml PO Q6H PRN PRN PRN Reason: Gastric Burning Albuterol Sulfate (Albuterol 2.5 Mg/3 Ml Vial.Neb.) 2.5 mg INHALATION Q2H PRN PRN PRN Reason: Dyspnea, wheezing Aspirin (Aspirin 81 Mg Tab.Chew) 81 mg PO DAILY@0800 [facility] Last Admin: 08/04/20 10:58 Dose: 81 mg Documented by: Cholecalciferol (Cholecalciferol (Vit D3) 1,000 Unit (25mcg)) 2,000 unit PO D AILY [facility] Last Admin: 08/04/20 11:01 Dose: 2,000 unit Documented by: Enoxaparin Sodium (Enoxaparin 40 Mg/0.4 Ml Syringe) 40 mg SC DAILY [facility] Last Admin: 08/04/20 11:02 Dose: Not Given Documented by: Famotidine (Famotidine 20 Mg Tablet) 20 mg PO BID [facility] Last Admin: 08/04/20 10:58 Dose: 20 mg Documented by: Hydralazine HCl (Hydralazine 20 Mg/Ml Vial) 10 mg IV Q4H PRN PRN PRN Reason: SBP > 180 Sodium Chloride () 1,000 mls @ 200 mls/hr IV .Q5H [facility] Stop: 08/04/20 17:44 Last Infusion: 08/04/20 10:57 Dose: 0 mls/hr Documented by: Lisinopril (Lisinopril 20 Mg Tablet) 20 mg PO DAILY [facility] Last Admin: 08/04/20 11:00 Dose: 20 mg Documented by: Melatonin (Melatonin 3 Mg Tablet) 3 mg PO QHS PRN PRN PRN Reason: INSOMNIA Morphine Sulfate (Morphine 2 Mg/Ml Syringe) 2 mg IV Q3H PRN PRN PRN Reason: Pain Score 6-10 Nicotine (Nicotine 21 Mg Patch) 21 mg TD DAILY [facility] Last Admin: 08/04/20 10:59 Dose: 21 mg Documented by: Nitroglycerin (Nitroglycerin (Inpatient Use) 0.4 Mg Tab.Subl) 0.4 mg SL Q5M PRN PRN Reason: CARDIAC/CHEST PAIN Nutritional Formula (Lactose Free) (Ensure Enlive 120 Ml Liquid) 120 ml PO 4X/DAY [facility] Last Admin: 08/04/20 11:02 Dose: Not Given Documented by: Ondansetron HCl (Ondansetron 4 Mg/2 Ml Vial) 4 mg IV Q8H PRN PRN PRN Reason: NAUSEA/VOMITING Oxycodone HCl (Oxycodone 5 Mg Tablet) 5 mg PO Q4H PRN PRN PRN Reason: Pain Score 4-5 Polyethylene Glycol (Polyethylene Glycol 3350 17 Gm Packet) 17 gm PO DAILY [facility] Last Admin: 08/04/20 11:03 Dose: Not Given Documented by: Prochlorperazine Edisylate (Prochlorperazine 10 Mg/2 Ml Vial) 5 mg IV Q4H PRN PRN PRN Reason: Breakthrough nausea/vomiting Psyllium Hydrophilic Mucilloid (Psyllium 1 Packet) 1 packet PO DAILY PRN PRN PRN Reason: Constipation Rosuvastatin Calcium (Rosuvastatin Calcium 10 Mg Tablet) 10 mg PO QHS [facility] Last Admin: 08/03/20 21:44 Dose: 10 mg Documented by: Senna/Docusate Sodium (Senna/Docusate Sodium 1 Tablet) 2 tablet PO BID [facility] Last Admin: 08/04/20 11:02 Dose: Not Given Documented by: Sodium Chloride (0.9% Saline Lock 10 Ml Syringe) 10 - 40 ml IV UD PRN PRN Reason: SALINE FLUSH Last Admin: 08/02/20 20:51 Dose: 10 ml Documented by: Throat Lozenges (Benzocaine/Menthol 1 Lozenge) 1 lozenge MUCOUS MEM Q2H PRN PRN PRN Reason: SORE THROAT Medical Necessity - Tobacco Use Smoking Status: Current every day smoker Tobacco Use: Cigarettes Assessment/Plan All Active Problems Abnormal loss of weight (Acute) Fall (Acute) 1. Liver lesions, concerning for metastatic lesions, left lung nodule-noted on outside facility CT abdomen/pelvis/chest. Liver biopsy 08/04/2020. Oncology consult pending. Likely ongoing outpatient work-up/follow-up. 2. Functional decline, weight loss-possibly secondary to #1. PT/OT. Possible SNF at discharge for rehab. 3. Hypertension-stable, continue lisinopril/HCTZ. 4. Hyperlipidemia-continue statin. 5. History of benign brain tumor 6. Chronic tobacco use-encouraged cessation. 7. Severe protein calorie malnutrition-as evidenced by recent weight loss, poor appetite, muscle/fat loss. Dietitian consulted. DVT prophylaxis-Lovenox subcu This patient was seen by SANNA Blevins under the supervision of Dr. Carballo. <Cristobal Carballo - Last Filed: 08/04/20 13:39> - Physical Exam Vitals/I&O's: Vital Signs Temp Pulse Resp BP Pulse Ox 36.7 C 60 18 157/81 H 100 08/04/20 11:11 08/04/20 11:11 08/04/20 11:11 08/04/20 11:11 08/04/20 11:11 Oxygen Flow Rate (L/min) [6] 1 Oxygen Flow Rate (L/min) [5] 1 Oxygen Flow Rate (L/min) [4] 1 Oxygen Flow Rate (L/min) [3] 1 Oxygen Flow Rate (L/min) [2] 2 Oxygen Flow Rate (L/min) [1 ( 2 Initial Baseline)] Oxygen Flow Rate (L/min) 1 Oxygen Delivery Method [6] Nasal Cannula Oxygen Delivery Method [5] Nasal Cannula Oxygen Delivery Method [4] Nasal Cannula Oxygen Delivery Method [3] Nasal Cannula Oxygen Delivery Method [2] Nasal Cannula Oxygen Delivery Method [1 ( Nasal Cannula Initial Baseline)] Oxygen Delivery Method Room Air Weight: 74.1 kg Body Mass Index (BMI) 22.7 Intake and Output for Last 24 Hours 08/02/20 08/03/20 08/04/20 22:59 23:59 23:59 Intake Total 981.67 / 981.67 Balance 981.67 / 981.67 General: Alert, Cooperative HEENT: Atraumatic, Normocephalic Lungs: Clear to auscultation, Normal air movement, No rhonchi, No wheeze Cardiovascular: Regular rate, Regular Rhythm, Normal S1, Normal S2, No murmurs Abdomen: Bowel Sounds Present, Soft, Non Tender, Non-Distended Extremities: No edema, No Calf Tenderness Skin: No rashes, No breakdown Psych/Mental Status: Normal Affect, Appropriate Current Medications Acetaminophen (Acetaminophen 325 Mg Tablet) 650 mg PO Q6H PRN PRN PRN Reason: Pain Score 1-10/Temp > 100.7 F Last Admin: 08/02/20 21:03 Dose: 650 mg Documented by: Al Hydroxide/Mg Hydroxide (Mag Hydrox/Al Hydrox/Simeth 30 Ml Udc) 30 ml PO Q6H PRN PRN PRN Reason: Gastric Burning Albuterol Sulfate (Albuterol 2.5 Mg/3 Ml Vial.Neb.) 2.5 mg INHALATION Q2H PRN PRN PRN Reason: Dyspnea, wheezing Aspirin (Aspirin 81 Mg Tab.Chew) 81 mg PO DAILY@0800 [facility] Last Admin: 08/04/20 10:58 Dose: 81 mg Documented by: Cholecalciferol (Cholecalciferol (Vit D3) 1,000 Unit (25mcg)) 2,000 unit PO DAILY [facility] Last Admin: 08/04/20 11:01 Dose: 2,000 unit Documented by: Enoxaparin Sodium (Enoxaparin 40 Mg/0.4 Ml Syringe) 40 mg SC DAILY [facility] Last Admin: 08/04/20 11:02 Dose: Not Given Documented by: Famotidine (Famotidine 20 Mg Tablet) 20 mg PO BID [facility] Last Admin: 08/04/20 10:58 Dose: 20 mg Documented by: Hydralazine HCl (Hydralazine 20 Mg/Ml Vial) 10 mg IV Q4H PRN PRN PRN Reason: SBP > 180 Sodium Chloride () 1,000 mls @ 200 mls/hr IV .Q5H [facility] Stop: 08/04/20 17:44 Last Admin: 08/04/20 13:21 Dose: 200 mls/hr Documented by: Lisinopril (Lisinopril 20 Mg Tablet) 20 mg PO DAILY [facility] Last Admin: 08/04/20 11:00 Dose: 20 mg Documented by: Melatonin (Melatonin 3 Mg Tablet) 3 mg PO QHS PRN PRN PRN Reason: INSOMNIA Morphine Sulfate (Morphine 2 Mg/Ml Syringe) 2 mg IV Q3H PRN PRN PRN Reason: Pain Score 6-10 Nicotine (Nicotine 21 Mg Patch) 21 mg TD DAILY [facility] Last Admin: 08/04/20 10:59 Dose: 21 mg Documented by: Nitroglycerin (Nitroglycerin (Inpatient Use) 0.4 Mg Tab.Subl) 0.4 mg SL Q5M PRN PRN Reason: CARDIAC/CHEST PAIN Nutritional Formula (Lactose Free) (Ensure Enlive 120 Ml Liquid) 120 ml PO 4X/DAY [facility] Last Admin: 08/04/20 13:21 Dose: 120 ml Documented by: Ondansetron HCl (Ondansetron 4 Mg/2 Ml Vial) 4 mg IV Q8H PRN PRN PRN Reason: NAUSEA/VOMITING Oxycodone HCl (Oxycodone 5 Mg Tablet) 5 mg PO Q4H PRN PRN PRN Reason: Pain Score 4-5 Polyethylene Glycol (Polyethylene Glycol 3350 17 Gm Packet) 17 gm PO DAILY [facility] Last Admin: 08/04/20 11:03 Dose: Not Given Documented by: Prochlorperazine Edisylate (Prochlorperazine 10 Mg/2 Ml Vial) 5 mg IV Q4H PRN PRN PRN Reason: Breakthrough nausea/vomiting Psyllium Hydrophilic Mucilloid (Psyllium 1 Packet) 1 packet PO DAILY PRN PRN PRN Reason: Constipation Rosuvastatin Calcium (Rosuvastatin Calcium 10 Mg Tablet) 10 mg PO QHS [facility] Last Admin: 08/03/20 21:44 Dose: 10 mg Documented by: Senna/Docusate Sodium (Senna/Docusate Sodium 1 Tablet) 2 tablet PO BID [facility] Last Admin: 08/04/20 11:02 Dose: Not Given Documented by: Sodium Chloride (0.9% Saline Lock 10 Ml Syringe) 10 - 40 ml IV UD PRN PRN Reason: SALINE FLUSH Last Admin: 08/02/20 20:51 Dose: 10 ml Documented by: Throat Lozenges (Benzocaine/Menthol 1 Lozenge) 1 lozenge MUCOUS MEM Q2H PRN PRN PRN Reason: SORE THROAT Assessment/Plan Patient seen and examined independently. Data reviewed. I agree with the above note by the nurse practitioner. 1. Liver lesions Concerning for malignancy Patient underwent biopsy on 315. Results of which will be back for several days. 2. Hypercalcemia Corrected for albumin is 13.4 Concerned that this could be hypercalcemia of malignancy It is possible that this could be why he is weak Plan * IV fluids * Zoledronic acid * Recheck 3. Debility PT OT evaluate and treat. Discussed with the patient's at bedside. All questions were answered in regards to the information that has been made available thus far. Greater than 35 minutes which greater than 50% of the time was spent discussing with the patient and his about the findings thus far and the ongoing treatment. Inpatient E&M: [id number] [facility] L[facility]
--- NOTE | 2020-08-04 12:51 | CASEMGMT ---
Social Work Note Pt is listed as self-pay. SW in to speak with pt. SW introduced self and role at [facility]. Pt is alert and orientated. Pt confirms he has no insurance. Pt states he works but doesn't work. Pt states he makes about $10,000-11,000 a year. Pt states he has never applied for Medicaid before. Pt states he has and she is disabled and doesn't work. SW provided pt with financial resources including HCAP application, [facility] information, Rx assistance programs and Medicaid Application. SW encouraged pt to apply for Medicaid. Pt states understanding, denied additional needs or concerns at this time. Kalli Goodwin CONSTRUCTION PROJECT ADMINISTRATOR, SENIOR CASE MANAGER
[2020-08-04] MEDS: hydrALAZINE 20 MG/ML Vial 10 MG IV (16:45)
[2020-08-04] MEDS: 0.9% Saline Lock 10 ML Syringe IV ×2 (16:46→22:51)
[2020-08-05 03:05] VITALS: BP 166/87; PULSE 60; RESP 16; TEMP 36.5; O2SAT 98
[2020-08-05 05:35] LABS: Anion Gap 5 (5-15); BUN 8 mg/dL (7-18); BUN/Creat Ratio 14.1 RATIO (10-20); Chloride 107 mmol/L (98-107); Creatinine, Serum 0.57 mg/dL (0.70-1.30); EST Glomerular Filtration Rate 149 mL/min (>60); Est Glom Filt Rate - Afr Amer 180 mL/min (>60); Glucose 95 mg/dL (74-106); Potassium 2.9 mmol/L (3.5-5.1); Sodium Level 140 mmol/L (136-145)
[2020-08-05 07:08] VITALS: O2SAT 96
[2020-08-05 08:47] LABS: Carbohydrate AG 19-9 80 U/mL (0-35); Carcinoembryonic Antigen 1.7 ng/mL (0.0-4.7)
[2020-08-05 09:00] VITALS: BP 155/78; PULSE 56; RESP 18; TEMP 36.7; O2SAT 99
[2020-08-05] MEDS: Enoxaparin 40 MG/0.4 ML Syringe SC (09:06)
[2020-08-05] MEDS: Aspirin 81 MG TAB.CHEW PO (09:07)
[2020-08-05] MEDS: Lisinopril 20 MG Tablet PO (09:07)
[2020-08-05] MEDS: Famotidine 20 MG Tablet PO ×2 (09:07→21:37)
--- NOTE | 2020-08-05 11:01 | CASEMGMT ---
Palliative screening tool completed at this time due to Lace/strata score of 3. Patient meets criteria at this time. Hospitalist notified and agreeable to palliative consult. JUAN CARLOS LAKHANI sent referral for palliative consult.
--- NOTE | 2020-08-05 11:36 | ONC.CONS.INP ---
Subjective Date of Service:: 08/05/20 Chief Complaint: Lung nodules/liver lesions History of Present Illness: Mr. Ceja is a very pleasant 75 year old gentleman with a PMH significant for hypertension, and a remote history for benign brain tumor resected in 1998. Spouse reports he has experienced 3 months of decreased appetite, endorses 20 lb weight loss and progressively worsening generalized weakness. [facility] Presented these complaints and was scheduled for a CT chest later this month, however he fell in his home on 08/02/20 and was taken by squad to [facility] ED. CT head showed left frontal encephalomalacia, atrophy, but no acute intracranial findings including bleed. CT of the abdomen reported large areas of abnormal attenuation of liver, suspect metastatic lesions, enlarged prostate and findings of left lower lobe nodules. No adenopathy. Transferred to [facility] for failure to thrive, fall. On admission found to have WBC 12, Ca elevated, alk phos elevated. Given 4 mg zolendronic acid with modest improvement. Upon entering the room, the patient is up in chair conversing with spouse. He specifically denies any headaches, vision changes, dysphagia, abdominal pain, nausea vomiting, bone pain, changes in his bowel habits. No worsening of exertional dyspnea or changes in the characteristics of his chronic cough. Colonoscopy up-to-date. Has never underwent low-dose CT for lung cancer screening. Unsure when he had a PSA checked. Endorses a 60 pack year tobacco use history, continues to smoke. Family history negative for malignancies. Past Medical History: Chronic Problems History of brain tumor (Chronic) Tobacco use (Chronic) HLD (hyperlipidemia) (Chronic) HTN (hypertension) (Chronic) Past Medical/Surgical History: Past Medical History - Most Recent Inpatient Visit Past Medical History Start: 08/02/20 20:01 Text: Status: Complete Freq: ONCE Protocol: Document 08/02/20 20:12 CDS (Rec: 08/02/20 20:16 CDS [id number]) BMI Required to complete PM What is Patient's BMI 22.7 Past Medical History Unable History Recalled No Query Text:Pt Unable/Family Not Present Neurologic Medical History Hx Stroke/TIA No Hx Dementia/Alzheimer's No Hx Parkinson's Disease No Hx Seizures Yes: d/t brain tumor. last in 1998 Hx Multiple Sclerosis No Hx Migraines No Cardiac Medical History VTE Present on Admission No Hx of Deep Vein Thrombosis/VTE/PE No Hx Hypertension Yes Hx Chest Pain/Angina No Hx Heart Attack No Hx Cardiac Surgery/Stents/Etc. No Hx Heart Failure No Hx Pacemaker/AICD No Hx Irregular Heartbeat and/or Afib No Hx Anticoagulant Therapy Yes: ASA Query Text:(Coumadin, Aspirin, Plavix, Xarelto, etc.) Hx Pain in Legs when Walking/Leg Cramps No Respiratory Medical History Hx COPD No Hx Emphysema No Hx Smoking Yes Smoking Status Current every day smoker Tobacco Use Cigarettes Years Smoking 60 Packs Smoked per Day 1 Hx Tobacco Use in last 12 months Yes Sent to [facility] Yes Hx Sleep Apnea No Do you snore loudly (louder than talking Yes or can be heard through closed doors)? Do you often feel tired/ fatigued/ No sleepy during daytime? Has anyone observed you stop breathing No during sleep? STOP Results Positive GI Medical History Hx Ulcer No Hx Hepatitis No Hx Cirrhosis No Hx GI Bleed No Hx Unplanned Weight Loss Yes Genitourinary Medical History Indwelling Catheter in Place on Arrival/ No Admission Hx Renal Disease No Hx Dialysis No Musculoskeletal History Hx Arthritis No Hx Rheumatoid Arthritis No Endocrine Medical History Hx Diabetes No Hx Thyroid Disease No Hematologic Medical History Hx of Blood Transfusion No Hx of Transfusion in last 3 Months No Ever experience any problems with No transfusion(s)? Hx of Preganancy in last 3 Months N/A Nurse Filling Out Transfusion & CSNYDER Questions: Date: 08/02/20 Time: 20:16 Psycho/Social Medical History Hx Depression No Hx Anxiety No Hx Behavior Disorder No Hx Alcohol Use Yes: Hx of Hx Substance Use No Other Medical History Hx Blood Disorders No Hx Anemia No Hx Cancer No Hx Drug Resistant Organism No Wound/Pressure Injury Present on Arrival No /Admission Query Text:If yes, chart assessment in Shift/Clinical Findings Central Line/PICC/VAD Present on Arrival No /Admission Risk for Readmission Number of Risk Factors 2 At Risk for Readmission Patient is Not at Risk Patient is eligible for Call Back N - Social History Smoking Status: Current every day smoker Tobacco Use: Cigarettes Allergies/Adverse Reactions: Allergy/AdvReac Type Severity Reaction Status Date / Time atorvastatin AdvReac Other Verified 08/02/20 18:08 simvastatin AdvReac Other Verified 08/02/20 18:08 Review of Systems Constitutional:: Reports: Weakness, Fatigue, Weight loss, Appetite change. Denies: Fever, Sweats, Chills Cardiovascular:: Denies: Chest pain, Palpitations Respiratory: Reports: Cough, Shortness of breath upon exertion. Denies: Hemoptysis, Wheezing Gastrointestinal:: Denies: Abdominal pain, Nausea, Vomiting, Diarrhea, Constipation, Melena, Hematochezia, Reflux, Dysphagia Genitourinary: Denies: Dysuria, Hematuria, 15, Flank pain Musculoskeletal:: Denies: Back pain, Myalgia, Arthralgia Skin: Denies: Jaundice, Rash, Skin Changes Neurological:: Reports: Muscle weakness. Denies: Headache, Dizziness, Numbness, Tingling Psychiatric: Denies: Anxiety, Depression, Suicidal Ideations Vital Signs Temperature 98.0 F 08/05/20 09:00 Temperature Source Oral 08/05/20 09:00 Pulse Rate 56 L 08/05/20 09:00 Pulse Strength Normal (2+) 08/05/20 10:00 Respiratory Rate 18 08/05/20 09:00 Respiratory Effort Non-Labored 08/04/20 16:31 Respiratory Depth Normal 08/04/20 16:31 Respiratory Pattern Normal 08/04/20 16:31 Blood Pressure 155/78 H 08/05/20 09:00 Blood Pressure Mean 103 08/05/20 09:00 Blood Pressure Source Monitor 08/05/20 09:00 Blood Pressure Position Semi-Fowlers 08/05/20 09:00 Blood Pressure Location Right Arm 08/05/20 09:00 Baseline BP 178/96 08/04/20 10:40 Pulse Ox 99 08/05/20 09:00 Oxygen Delivery Method Room Air 08/05/20 09:00 Oxygen Flow Rate (L/min) 1 08/04/20 10:03 - Physical Exam General: Alert, Oriented x3, No apparent distress HEENT: Atraumatic, PERRLA, EOMI, Normocephalic Oropharynx:: Negative for: Dry mucosa, Ulcerated lesions Neck:: Supple, Trachea midline Cardiac:: Regular rate, Regular rhythm, Normal S1, Normal S2 Lungs: Clear to auscultation, Diminished, Excusion symmetrical Abdomen:: Bowel sounds x 4, Soft, Non-tender, Non-distended. Negative for: Hepatosplenomegaly Extremities:: Clubbing. Negative for: Edema, Calf tenderness Neurological: Neuro grossly intact Skin:: Negative for: Lesions, Rash, Petechiae, Ecchymosis Psychiatric:: Appropriate affect, Euthymic Lymphatics:: Negative for: Cervical lymphadenopathy, Supraclavicular lymphadenopathy, Axillary lymphadenopathy Laboratory Data: Laboratory Tests 08/05/20 08/03/20 Range/Units 05:14 05:16 Sodium 140 (136-145) mmol/L Potassium 2.9 L (3.5-5.1) mmol/L Chloride 107 (98-107) mmol/L Carbon Dioxide 28.0 (21.0-32.0) mmol/L Anion Gap 5 (5-15) BUN 8 (7-18) mg/dL Creatinine 0.57 L (0.70-1.30) mg/dL Estim Creat Clear Calc 66.90 ml/min Est GFR (MDRD) Af Amer 180 (>60) mL/min Est GFR (MDRD) Non-Af 149 (>60) mL/min BUN/Creatinine Ratio 14.1 (10-20) RATIO Glucose 95 (74-106) mg/dL Calcium 11.0 H (8.5-10.1) mg/dL Tumor Marker AFP 29562.0 H (0.0-8.3) ng/mL Carcinoembryonic Ag 1.7 (0.0-4.7) ng/mL CA 19-9 Antigen 80 H (0-35) U/mL Diagnostic Data: Diagnostic Data Biopsy CT 08/04/20 09:00 IMPRESSION: 1. CT directed core needle biopsy of the liver, using CT image guidance with image documentation as described. 2. Conscious Sedation protocol utilized with independent monitoring. Electronically Signed: Paul Flores MD at 10:40 EDT , Service support , Assessment and Plan Mr. Ceja is a very pleasant 75 year old gentleman smoker who experienced a fall subsequent to three months of progressive generalized weakness and unintentional weight loss. Imaging by way of CT abdomen at an outside facility reports large areas of abnormal attenuation of the liver, enlarged prostate and lung nodules, left lower lobe. He was admitted for failure to thrive. 1. Abnormal liver imaging?occurring in the context of heavy tobacco use, unintentional weight loss. Lung nodules and enlarged prostate were also identified. Only CT head and CT abdomen reports were available to review, images were taken at an outside facility and not available. It is unclear if a dedicated CT chest was obtained. Order for a dedicated CT chest placed after discussion with attending physician, Dr. Carballo. Mr. Ceja underwent liver biopsy on 08/04/2020, pathology is pending. Various tumor markers were ordered, it appears AFP, CEA and CA 19 9 are all elevated but these are not diagnostic. Findings were discussed with the patient and it was explained that a diagnosis cannot be made until pathology is confirmed. In the unlikely event that pathology results are back before he is discharged I will communicate those results to him while he is here. [facility] nursing staff to request CT images in the interim. 2. Hypercalcemia- As evidenced by ca of 12.2, given 4 mg of zolendronic acid with modest improvement. Calcium today 11. Recommend continued IV hydration and close follow-up. Concerning for sequelae associated with malignancy. Suspect skeletal involvement- Alk phos 438. 3. VTE prophylaxis- high risk for VTE. Platelets 165,000. Continue Lovenox. Patient will require close monitoring of calcium levels once he is in the outpatient setting. Recommend follow-up with [facility] within 1 week of discharge to review pathology and monitor calcium level. Sylwia Mcnamara, MSN, BILLING AUDITOR, AOCNP Medications: Medications Added to Medication List This Visit Category Date Time Status 0.9% Normal Saline 1,000 ml Med 08/05/20 10:40 Active IV 200 mls/hr Potassium Chloride Oral Tablet [K-Dur] Med 08/05/20 12:00 Active 40 meq PO BIDCM Primary Care Provider: FREDERICK GARCIA Referring Provider: - Problem List (1) Liver lesion Status: Acute (2) Lung nodules Status: Acute (3) Hypercalcemia Status: Acute
[2020-08-05] MEDS: 0.9% Normal Saline 1,000 ML 200 ML IV ×2 (11:44→17:08)
[2020-08-05] MEDS: Potassium Chloride Oral Tablet 20 MEQ 40 MEQ PO ×2 (11:51→17:08)
--- NOTE | 2020-08-05 11:55 | CASEMGMT ---
RN CM in to discuss discharge planning with patient and significant other. RN CM discussed HHC. Patient was provided a list of HHC providers including quality and resource use data and consistent with the patient?s preferred geographic region, medical needs, and insurance network. Patient and significant other reviewing list for preferences.
--- NOTE | 2020-08-05 15:00 | CASEMGMT ---
Addendum entered by Kalli Huddleston 08/05/20 15:37: RN LESVIA received call back from [facility] and they are able to accept the patient. RN CM updated the patient and Leigh significant other. Original Note: RN CM review [facility] choices with patient and significant other. First choice is [facility], second [facility]. RN LESVIA made referral to [facility] and they do not have nursing in patient's service area. RN CM sent referral to [facility] and they are reviewing. CM updated the patient and significant other. CM will continue to follow this patient and plan for a safe discharge.
[2020-08-05 15:33] VITALS: BP 142/78; PULSE 62; RESP 18; TEMP 36.8; O2SAT 100
--- NOTE | 2020-08-05 15:35 | PCM.PN.HOSP ---
Patient Problems: Active and Suspected Problems Abnormal loss of weight (Acute) Fall (Acute) Subjective: Feels well. Anxious to go home. Vitals/I&O's: Vital Signs Temp Pulse Resp BP Pulse Ox 36.8 C 62 18 142/78 H 100 08/05/20 15:33 08/05/20 15:33 08/05/20 15:33 08/05/20 15:33 08/05/20 15:33 Oxygen Flow Rate (L/min) [6] 1 Oxygen Flow Rate (L/min) [5] 1 Oxygen Flow Rate (L/min) [4] 1 Oxygen Flow Rate (L/min) [3] 1 Oxygen Flow Rate (L/min) [2] 2 Oxygen Flow Rate (L/min) [1 ( 2 Initial Baseline)] Oxygen Flow Rate (L/min) 1 Oxygen Delivery Method [6] Nasal Cannula Oxygen Delivery Method [5] Nasal Cannula Oxygen Delivery Method [4] Nasal Cannula Oxygen Delivery Method [3] Nasal Cannula Oxygen Delivery Method [2] Nasal Cannula Oxygen Delivery Method [1 ( Nasal Cannula Initial Baseline)] Oxygen Delivery Method Room Air Weight: 74.6 kg Body Mass Index (BMI) 22.7 Intake and Output for Last 24 Hours 08/03/20 08/04/20 08/05/20 23:59 23:59 23:59 Intake Total 2821.67 / 2821.67 250 / 250 Output Total 650 / 850 400 / 400 Balance 2171.67 / 1971.67 -150 / -150 General: Alert, No apparent distress HEENT: Atraumatic, Normocephalic Oral: Moist Mucosa, No Gingival or Mucosal Lesions/ Ulcerations Neck: No Nodes, Thyroid Normal Size and Texture Lungs: Clear to auscultation, Normal air movement, No rhonchi, No wheeze, No rales Cardiovascular: Regular rate, Regular Rhythm, Normal S1, Normal S2, No murmurs Abdomen: Bowel Sounds Present, Soft, Non Tender, Non-Distended, No Hepato-splenomegaly Extremities: No edema, No Calf Tenderness Psych/Mental Status: Normal Affect, Appropriate Laboratory Results 08/03/20 05:16: Tumor Marker AFP 24925.0 H, Carcinoembryonic Ag 1.7, CA 19-9 Antigen 80 H 08/05/20 05:14: Sodium 140, Potassium 2.9 L, Chloride 107, Carbon Dioxide 28.0, Anion Gap 5, BUN 8, Creatinine 0.57 L, Estim Creat Clear Calc 66.90, Est GFR (MDRD) Af Amer 180, Est GFR (MDRD) Non-Af 149, BUN/Creatinine Ratio 14.1, Glucose 95, Calcium 11.0 H Current Medications Acetaminophen (Acetaminophen 325 Mg Tablet) 650 mg PO Q6H PRN PRN PRN Reason: Pain Score 1-10/Temp > 100.7 F Last Admin: 08/02/20 21:03 Dose: 650 mg Documented by: Al Hydroxide/Mg Hydroxide (Mag Hydrox/Al Hydrox/Simeth 30 Ml Udc) 30 ml PO Q6H PRN PRN PRN Reason: Gastric Burning Albuterol Sulfate (Albuterol 2.5 Mg/3 Ml Vial.Neb.) 2.5 mg INHALATION Q2H PRN PRN PRN Reason: Dyspnea, wheezing Aspirin (Aspirin 81 Mg Tab.Chew) 81 mg PO DAILY@0800 [facility] Last Admin: 08/05/20 09:07 Dose: 81 mg Documented by: Cholecalciferol (Cholecalciferol (Vit D3) 1,000 Unit (25mcg)) 2,000 unit PO DAILY [facility] Last Admin: 08/05/20 09:07 Dose: 2,000 unit Documented by: Enoxaparin Sodium (Enoxaparin 40 Mg/0.4 Ml Syringe) 40 mg SC DAILY [facility] Last Admin: 08/05/20 09:06 Dose: 40 mg Documented by: Famotidine (Famotidine 20 Mg Tablet) 20 mg PO BID [facility] Last Admin: 08/05/20 09:07 Dose: 20 mg Documented by: Hydralazine HCl (Hydralazine 20 Mg/Ml Vial) 10 mg IV Q4H PRN PRN PRN Reason: SBP > 180 Last Admin: 08/04/20 16:45 Dose: 10 mg Documented by: Sodium Chloride () 1,000 mls @ 200 mls/hr IV .Q5H [facility] Stop: 08/05/20 20:39 Last Admin: 08/05/20 11:44 Dose: 200 mls/hr Documented by: Lisinopril (Lisinopril 20 Mg Tablet) 20 mg PO DAILY [facility] Last Admin: 08/05/20 09:07 Dose: 20 mg Documented by: Melatonin (Melatonin 3 Mg Tablet) 3 mg PO QHS PRN PRN PRN Reason: INSOMNIA Morphine Sulfate (Morphine 2 Mg/Ml Syringe) 2 mg IV Q3H PRN PRN PRN Reason: Pain Score 6-10 Nicotine (Nicotine 21 Mg Patch) 21 mg TD DAILY [facility] Last Admin: 08/05/20 09:07 Dose: 21 mg Documented by: Nitroglycerin (Nitroglycerin (Inpatient Use) 0.4 Mg Tab.Subl) 0.4 mg SL Q5M PRN PRN Reason: CARDIAC/CHEST PAIN Nutritional Formula (Lactose Free) (Ensure Enlive 120 Ml Liquid) 120 ml PO 4X/DAY [facility] Last Admin: 08/05/20 09:09 Dose: Not Given Documented by: Ondansetron HCl (Ondansetron 4 Mg/2 Ml Vial) 4 mg IV Q8H PRN PRN PRN Reason: NAUSEA/VOMITING Oxycodone HCl (Oxycodone 5 Mg Tablet) 5 mg PO Q4H PRN PRN PRN Reason: Pain Score 4-5 Polyethylene Glycol (Polyethylene Glycol 3350 17 Gm Packet) 17 gm PO DAILY [facility] Last Admin: 08/05/20 09:09 Dose: Not Given Documented by: Potassium Chloride (Potassium Chloride Oral Tablet 20 [facility]eq) [facility] Last Admin: 08/05/20 11:51 Dose: 40 meq Documented by: Prochlorperazine Edisylate (Prochlorperazine 10 Mg/2 Ml Vial) 5 mg IV Q4H PRN PRN PRN Reason: Breakthrough nausea/vomiting Psyllium Hydrophilic Mucilloid (Psyllium 1 Packet) 1 packet PO DAILY PRN PRN PRN Reason: Constipation Rosuvastatin Calcium (Rosuvastatin Calcium 10 Mg Tablet) 10 mg PO QHS [facility] Last Admin: 08/05/20 09:07 Dose: 10 mg Documented by: Senna/Docusate Sodium (Senna/Docusate Sodium 1 Tablet) 2 tablet PO BID [facility] Last Admin: 08/05/20 09:10 Dose: Not Given Documented by: Sodium Chloride (0.9% Saline Lock 10 Ml Syringe) 10 - 40 ml IV UD PRN PRN Reason: SALINE FLUSH Last Admin: 08/04/20 22:51 Dose: 10 ml Documented by: Throat Lozenges (Benzocaine/Menthol 1 Lozenge) 1 lozenge MUCOUS MEM Q2H PRN PRN PRN Reason: SORE THROAT STROKE Vital Signs/Narrative: Vital Signs Temp Pulse Resp BP Pulse Ox 08/05/20 15:33 36.8 C 62 18 142/78 H 100 Medical Necessity - Tobacco Use Smoking Status: Current every day smoker Tobacco Use: Cigarettes Assessment/Plan All Active Problems Abnormal loss of weight (Acute) Fall (Acute) 1. Liver lesions Concerning for malignancy Patient underwent biopsy on 08/04. Results of which will be back for several days. Oncology on consult 2. Hypercalcemia Improved with IVF and zoledronic acid, but still corrected Ca is elevated Corrected for albumin is 12.2 Concerned that this could be hypercalcemia of malignancy It is possible that this could be why he is weak Plan IV fluids Recheck 3. Debility PT OT evaluate and treat. 4. VTE prophylaxis: LMWH Inpatient E&M: 63661 Subs Hosp L2
--- NOTE | 2020-08-05 16:16 | CT_ITS ---
STUDY: CT CHEST WITH CONTRAST REASON FOR EXAM: Male, 75 years old. Lung nodules RADIATION DOSAGE (If Supplied By Facility): DLP = ( 427.88 ) mGycm TECHNIQUE: Transaxial imaging was performed following intravenous administration of 100 ml of 100mL Isovue-370 contrast material. Coronal and sagittal reformatted images were created. Individualized dose optimization techniques were used for this CT. COMPARISON: None FINDINGS: Evaluation is limited due to artifact. No large or central pulmonary embolus is present. Multiple bilateral pulmonary masses are present, the largest in the left upper lobe measures 1.3 cm, series 4 image 33. The largest in the left lower lobe is in the superior segment measuring 1.5 cm, series 4 image 28. The largest on the right measures 1.2 cm, series 4 image 56. There is no consolidation. Small bilateral pleural effusions are present. There is no pneumothorax. The heart and pericardium are within normal limits. Mild right hilar and subcarinal lymph node prominence is present. There is no evidence of thoracic aortic aneurysm. The liver is extremely heterogeneous, with extensive hypoenhancement and hypoattenuation throughout. There is a splenic 1.3 cm enhancing nodule. There are no destructive osseous lesions. CT/Chest WITH Contrast IMPRESSION: Multiple bilateral pulmonary masses measuring up to 1.5 cm, concerning for neoplasm. Extensive heterogeneous enhancement of the liver with large areas of hypoattenuation/hypoenhancement, concerning for neoplastic involvement. 1.3 cm enhancing splenic nodule, indeterminate. Electronically Signed: Carlos Olivares MD at 17:57 EDT Tel , Service support ,
[2020-08-05 20:50] VITALS: BP 158/83; PULSE 66; RESP 16; TEMP 37; O2SAT 97
[2020-08-05] MEDS: Senna/Docusate Sodium 1 Tablet 2 TABLET PO (21:37)
[2020-08-06 03:00] VITALS: BP 150/86; PULSE 60; RESP 16; TEMP 36.6; O2SAT 97
[2020-08-06 06:57] LABS: Absolute Lymphocyte Count 1.94 X10^3/uL (0.83-4.51); Absolute Neutrophil Count 7.4 X10^3/uL (2.0-7.7); Basophil# 0.04 X10^3/uL; Basophil% 0.4 % (0-1); Eosinophil# 0.06 X10^3/uL; Eosinophils% 0.6 % (0-5); Hematocrit 44.8 % (40-54); Hemoglobin 14.4 g/dL (13.0-16.5); Lymphocyte # 1.94 X10^3/ul (4.0); Lymphocyte % 19.2 % (19-41); Mean Corp Hgb Conc 32.1 g/dL (32-36); Mean Corpuscular Hgb 27.6 pg (27.0-32.0); Mean Corpuscular Volume 85.8 fL (80-94); Mean Platelet Vol. 9.9 fl (6.2-12.0); Monocyte# 0.64 X10^3/uL; Monocyte% 6.3 % (0-10); NRBC Flagged by Analyzer 0 % (0-5); Neutrophil # 7.35 X10^3/uL (2.7-7.7); Platelet Count 145 K/mm3 (150-450); RBC Distribution Width CV 15.3 % (11.6-14.6); Red Blood Count 5.22 M/mm3 (4.6-6.2); White Blood Count 10.1 K/mm3 (4.4-11.0)
[2020-08-06 07:25] LABS: ALB/GLOB Ratio 0.6 RATIO (0.9-2.4); AST(SGOT) 182 U/L (15-37); Alanine Aminotransfer ALT/SGPT 48 U/L (16-61); Albumin, Serum 2.4 g/dL (3.2-5.0); Alkaline Phosphatase 591 U/L (45-117); Anion Gap 5 (5-15); BUN 8 mg/dL (7-18); BUN/Creat Ratio 11.3 RATIO (10-20); Calcium,Total 9.7 mg/dL (8.5-10.1); Chloride 107 mmol/L (98-107); Creatinine, Serum 0.71 mg/dL (0.70-1.30); EST Glomerular Filtration Rate 115 mL/min (>60); Est Glom Filt Rate - Afr Amer 139 mL/min (>60); Estimated Creatinine Clearance 67.08 ml/min; Glucose 94 mg/dL (74-106); Magnesium 1.8 mg/dL (1.6-2.6); Potassium 3.4 mmol/L (3.5-5.1); Protein, Total 6.4 g/dL (6.4-8.2); Sodium Level 138 mmol/L (136-145)
[2020-08-06 07:36] VITALS: O2SAT 95
[2020-08-06 08:00] VITALS: BP 130/80; PULSE 56; RESP 17; TEMP 36.9; O2SAT 98
[2020-08-06] MEDS: Aspirin 81 MG TAB.CHEW PO (08:00)
[2020-08-06] MEDS: Potassium Chloride Oral Tablet 20 MEQ 40 MEQ PO (08:01)
[2020-08-06] MEDS: 0.9% Saline Lock 10 ML Syringe IV (08:01)
[2020-08-06] MEDS: Enoxaparin 40 MG/0.4 ML Syringe SC (10:18)
[2020-08-06] MEDS: Famotidine 20 MG Tablet PO (10:20)
[2020-08-06] MEDS: Lisinopril 20 MG Tablet PO (10:22)
--- NOTE | 2020-08-06 10:27 | NURSING ---
Pt refusing nicotene patch. States he is going to smoke when he gets home today. Nicotene patch removed from R deltoid.
--- NOTE | 2020-08-06 10:36 | NURSING ---
Nicotene patch removed from R deltoid. Pt refusing new patch today due to discharging home and states he is not going to stop smoking.
--- NOTE | 2020-08-06 10:51 | PCM.DC ---
- Discharge Diagnoses Current Active Problems: Current Active and Chronic Problems Abnormal loss of weight (Acute) Fall (Acute) Liver lesion (Acute) Lung nodules (Acute) Hypercalcemia (Acute) History of brain tumor (Chronic) Tobacco use (Chronic) HLD (hyperlipidemia) (Chronic) HTN (hypertension) (Chronic) You will use the following diet at home:: Regular Your food should be the consistency of: Regular Your liquids should be the consistency of: Regular/Thin Discharge Activity: Return to Normal Activity Call your doctor if you observe: Fever of 101 or Higher, - - confusion. increased weakness. Allergies/Adverse Reactions: Allergies atorvastatin Adverse Reaction (Verified 08/02/20 18:08) Other simvastatin Adverse Reaction (Verified 08/02/20 18:08) Other Medications to take at Discharge Aspirin [Aspirin, Baby] 81 mg PO DAILY@0800 08/02/20 Cholecalciferol (Vitamin D3) [Vitamin D3] 2,000 unit PO DAILY 08/02/20 Lisinopril/Hydrochlorothiazide [Lisinopril-Hctz 20-12.5 mg Tab] 1 ea PO DAILY 08/02/20 Rosuvastatin Calcium 10 mg PO QHS 08/02/20 Potassium Chloride Oral Tablet [K-Dur] 10 meq PO DAILY #30 tablet 08/06/20 The following prescriptions were given: Potassium Chloride Oral Tablet [K-Dur] 10 meq PO DAILY #30 tablet Transmission Status: Pending to [id number] Primary Care Physician: FREDERICK GARCIA [Other] - Within 2 Weeks Test Results: Test results from this visit will be discussed in further detail at your follow-up appointment, if applicable. Please Follow Up With: Karen Gonzlaez MD When: 1 week Proposed Discharge Date: 08/06/20
--- NOTE | 2020-08-06 10:53 | DS.PCM_ITS ---
Discharge Date and Diagnosis - Problem List Patient Problems: Active and Suspected Problems Abnormal loss of weight (Acute) Fall (Acute) Liver lesion (Acute) Lung nodules (Acute) Hypercalcemia (Acute) Date of Admission: 08/02/20 Date of Discharge: 08/06/20 - Primary Discharge Diagnosis Acute Problems: Active Problems 1. Liver lesions Concerning for malignancy Patient underwent biopsy on 08/04. Results of which will be back for several days. Follow up with oncology 2. Hypercalcemia Improved with IVF and zoledronic acid, but still corrected Ca is elevated Concerned that this could be hypercalcemia of malignancy It is possible that this could be why he is weak Follow up labs as outpt May need additional zoledronic acid. 3. Debility: home with [facility]. 4. Severe protein calorie malnutrition: diet with supplements. - Secondary Discharge Diagnosis Chronic Problems: Chronic Problems History of brain tumor (Chronic) Tobacco use (Chronic) HLD (hyperlipidemia) (Chronic) HTN (hypertension) (Chronic) Hospital Course and Treatment Imaging Results: Clinical Impression(s) from Imaging Studies Biopsy CT 08/04/20 09:00 IMPRESSION: 1. CT directed core needle biopsy of the liver, using CT image guidance with image documentation as described. 2. Conscious Sedation protocol utilized with independent monitoring. Electronically Signed: Paul Flores MD at 10:40 EDT , Service support , Chest CT 08/05/20 16:16 IMPRESSION: Multiple bilateral pulmonary masses measuring up to 1.5 cm, concerning for neoplasm. Extensive heterogeneous enhancement of the liver with large areas of hypoattenuation/hypoenhancement, concerning for neoplastic involvement. 1.3 cm enhancing splenic nodule, indeterminate. Electronically Signed: Carlos Olivares MD at 17:57 EDT Tel , Service support , Carlos oncology Operations: None Procedures: - - CT guided liver Bx Summary of Care Provided: The patient is a 75 year old M presents with fall and generalized weakness. Presents to outside hospital with fall. Patient had laboratory abnormalities hypercalcemia as well as CT scan the abdomen showed multiple masses in the liver. Patient was transferred to [facility] and underwent evaluation. Patient underwent a liver biopsy on the , results are still pending. Patient also noted to have hypercalcemia that was corrected for 0.4. Patient did receive IV fluids and zoledronic acid on the . Calcium steadily improved. 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 Patient was seen in consultation by oncology ordered a CT of the chest that did show pulmonary masses. Patient will follow up with oncology as outpatient in regards to the biopsy results but also follow-up labs in regards to the hypercalcemia. [] Patient Problems: Active and Suspected Problems Abnormal loss of weight (Acute) Fall (Acute) Liver lesion (Acute) Lung nodules (Acute) Hypercalcemia (Acute) - Physical Exam Vitals/I&O's: Vital Signs Temp Pulse Resp BP Pulse Ox 36.9 C 56 L 17 130/80 H 98 08/06/20 08:00 08/06/20 08:00 08/06/20 08:00 08/06/20 08:00 08/06/20 08:00 Oxygen Flow Rate (L/min) [6] 1 Oxygen Flow Rate (L/min) [5] 1 Oxygen Flow Rate (L/min) [4] 1 Oxygen Flow Rate (L/min) [3] 1 Oxygen Flow Rate (L/min) [2] 2 Oxygen Flow Rate (L/min) [1 ( 2 Initial Baseline)] Oxygen Flow Rate (L/min) 1 Oxygen Delivery Method [6] Nasal Cannula Oxygen Delivery Method [5] Nasal Cannula Oxygen Delivery Method [4] Nasal Cannula Oxygen Delivery Method [3] Nasal Cannula Oxygen Delivery Method [2] Nasal Cannula Oxygen Delivery Method [1 ( Nasal Cannula Initial Baseline)] Oxygen Delivery Method Room Air Weight: 74.3 kg Body Mass Index (BMI) 22.7 Intake and Output for Last 24 Hours 08/04/20 08/05/20 08/06/20 23:59 23:59 23:59 Intake Total 2821.67 / 2821.67 2750 / 2750 Output Total 650 / 850 450 / 450 500 / 500 Balance 2171.67 / 1971.67 2300 / 2300 -500 / -500 General: Alert, No apparent distress HEENT: Atraumatic, Normocephalic Oral: Moist Mucosa, No Gingival or Mucosal Lesions/ Ulcerations Neck: No Nodes, Thyroid Normal Size and Texture Lungs: Clear to auscultation, Normal air movement, No rhonchi, No wheeze Cardiovascular: Regular rate, Regular Rhythm, Normal S1, Normal S2 Abdomen: Bowel Sounds Present, Soft, Non Tender, Non-Distended Extremities: No edema, No Calf Tenderness Laboratory Results 08/05/20 05:14: PTH Intact 5.0 L 08/06/20 06:15: WBC 10.1, RBC 5.22, Hgb 14.4, Hct 44.8, MCV 85.8, MCH 27.6, MCHC 32.1, RDW Std Deviation 48.0 H, RDW Coeff of [place] 15.3 H, Plt Count 145 L, MPV 9.9, Immature Gran % (Auto) 0.500, Neut % (Auto) 73.0 H, Lymph % (Auto) 19.2, Mo no % (Auto) 6.3, Eos % (Auto) 0.6, Baso % (Auto) 0.4, Absolute Neuts (auto) 7.4, Absolute Lymphs (auto) 1.94, Nucleated RBC % 0 08/06/20 06:15: Sodium 138, Potassium 3.4 L, Chloride 107, Carbon Dioxide 26.0, Anion Gap 5, BUN 8, Creatinine 0.71, Estim Creat Clear Calc 67.08, Est GFR (MDRD) Af Amer 139, Est GFR (MDRD) Non-Af 115, BUN/Creatinine Ratio 11.3, Glucose 94, Calcium 9.7, Magnesium 1.8, Total Bilirubin 0.60, AST 182 H, ALT 48, Alkaline Phosphatase 591 H, Total Protein 6.4, Albumin 2.4 L, Globulin 4.0, Albumin/Globulin Ratio 0.6 L Current Medications Acetaminophen (Acetaminophen 325 Mg Tablet) 650 mg PO Q6H PRN PRN PRN Reason: Pain Score 1-10/Temp > 100.7 F Last Admin: 08/02/20 21:03 Dose: 650 mg Documented by: Al Hydroxide/Mg Hydroxide (Mag Hydrox/Al Hydrox/Simeth 30 Ml Udc) 30 ml PO Q6H PRN PRN PRN Reason: Gastric Burning Albuterol Sulfate (Albuterol 2.5 Mg/3 Ml Vial.Neb.) 2.5 mg INHALATION Q2H PRN PRN PRN Reason: Dyspnea, wheezing Aspirin (Aspirin 81 Mg Tab.Chew) 81 mg PO DAILY@0800 [facility] Last Admin: 08/06/20 08:00 Dose: 81 mg Documented by: Cholecalciferol (Cholecalciferol (Vit D3) 1,000 Unit (25mcg)) 2,000 unit PO DAILY [facility] Last Admin: 08/06/20 10:21 Dose: 2,000 unit Documented by: Enoxaparin Sodium (Enoxaparin 40 Mg/0.4 Ml Syringe) 40 mg SC DAILY [facility] Last Admin: 08/06/20 10:18 Dose: 40 mg Documented by: Famotidine (Famotidine 20 Mg Tablet) 20 mg PO BID [facility] Last Admin: 08/06/20 10:20 Dose: 20 mg Documented by: Hydralazine HCl (Hydralazine 20 Mg/Ml Vial) 10 mg IV Q4H PRN PRN PRN Reason: SBP > 180 Last Admin: 08/04/20 16:45 Dose: 10 mg Documented by: Lisinopril (Lisinopril 20 Mg Tablet) 20 mg PO DAILY [facility] Last Admin: 08/06/20 10:22 Dose: 20 mg Documented by: Melatonin (Melatonin 3 Mg Tablet) 3 mg PO QHS PRN PRN PRN Reason: INSOMNIA Morphine Sulfate (Morphine 2 Mg/Ml Syringe) 2 mg IV Q3H PRN PRN PRN Reason: Pain Score 6-10 Nicotine (Nicotine 21 Mg Patch) 21 mg TD DAILY [facility] Last Admin: 08/06/20 10:23 Dose: Not Given Documented by: Nitroglycerin (Nitroglycerin (Inpatient Use) 0.4 Mg Tab.Subl) 0.4 mg SL Q5M PRN PRN Reason: CARDIAC/CHEST PAIN Nutritional Formula (Lactose Free) (Ensure Enlive 120 Ml Liquid) 120 ml PO 4X/DAY [facility] Last Admin: 08/06/20 10:18 Dose: 120 ml Documented by: Ondansetron HCl (Ondansetron 4 Mg/2 Ml Vial) 4 mg IV Q8H PRN PRN PRN Reason: NAUSEA/VOMITING Oxycodone HCl (Oxycodone 5 Mg Tablet) 5 mg PO Q4H PRN PRN PRN Reason: Pain Score 4-5 Polyethylene Glycol (Polyethylene Glycol 3350 17 Gm Packet) 17 gm PO DAILY [facility] Last Admin: 08/06/20 10:23 Dose: Not Given Documented by: Potassium Chloride (Potassium Chloride Oral Tablet 20 Meq) [facility] Last Admin: 08/06/20 08:01 Dose: 40 meq Documented by: Prochlorperazine Edisylate (Prochlorperazine 10 Mg/2 Ml Vial) 5 mg IV Q4H PRN P RN PRN Reason: Breakthrough nausea/vomiting Psyllium Hydrophilic Mucilloid (Psyllium 1 Packet) 1 packet PO DAILY PRN PRN PRN Reason: Constipation Rosuvastatin Calcium (Rosuvastatin Calcium 10 Mg Tablet) 10 mg PO QHS [facility] Last Admin: 08/05/20 09:07 Dose: 10 mg Documented by: Senna/Docusate Sodium (Senna/Docusate Sodium 1 Tablet) 2 tablet PO BID [facility] Last Admin: 08/06/20 10:24 Dose: Not Given Documented by: Sodium Chloride (0.9% Saline Lock 10 Ml Syringe) 10 - 40 ml IV UD PRN PRN Reason: SALINE FLUSH Last Admin: 08/06/20 08:01 Dose: 10 ml Documented by: Throat Lozenges (Benzocaine/Menthol 1 Lozenge) 1 lozenge MUCOUS MEM Q2H PRN PRN PRN Reason: SORE THROAT Discharge Diet: No Restrictions Discharge Activity: Return to Normal Activity Call your doctor if you observe: Fever of 101 or Higher, - - confusion. increased weakness. Home Medications: Medications to take at Discharge Aspirin [Aspirin, Baby] 81 mg PO DAILY@0800 08/02/20 Cholecalciferol (Vitamin D3) [Vitamin D3] 2,000 unit PO DAILY 08/02/20 Lisinopril/Hydrochlorothiazide [Lisinopril-Hctz 20-12.5 mg Tab] 1 ea PO DAILY 08/02/20 Rosuvastatin Calcium 10 mg PO QHS 08/02/20 Potassium Chloride Oral Tablet [K-Dur] 10 meq PO DAILY #30 tablet 08/06/20 Following Prescriptions Were Given to Patient: Potassium Chloride Oral Tablet [K-Dur] 10 meq PO DAILY #30 tablet Transmission Status: Pending to [id number] Primary Care Physician: FREDERICK GARCIA [Other] - Within 2 Weeks Please Follow Up With: Karen Gonzalez MD When: 1 week Disposition: Home with Home Health Minutes spent on discharge:: 32 Patient Condition:: Fair Medical Necessity - Tobacco Use Smoking Status: Current every day smoker Tobacco Use: Cigarettes Meaningful Use Info Meaningful Use Diagnoses (Choose all that apply): None applicable Inpatient E&M: 29613 Disch Hosp
--- NOTE | 2020-08-06 11:18 | CASEMGMT ---
JUAN CARLOS LAKHANI in to inquire if patient had gotten a walker. Significant other states that they have gotten patient a walker. JUAN CARLOS LAKHANI [facility] when [facility] will [facility] the [facility]. Patient and significant other denied further needs at this time.
[2020-08-06 11:53] VITALS: BP 144/74; PULSE 61; RESP 18; TEMP 36.7; O2SAT 99
--- NOTE | 2020-08-06 12:16 | PHA.DC.MR ---
Pharmacy Service has performed discharge medication reconciliation for this patient. The patient's discharge medication list was reviewed for discrepancies and discrepancies were resolved. Home Medications Aspirin [Aspirin, Baby] 81 mg PO DAILY@0800 08/02/20 Cholecalciferol (Vitamin D3) [Vitamin D3] 2,000 unit PO DAILY 08/02/20 Lisinopril/Hydrochlorothiazide [Lisinopril-Hctz 20-12.5 mg Tab] 1 ea PO DAILY 08/02/20 Rosuvastatin Calcium 10 mg PO QHS 08/02/20 Potassium Chloride Oral Tablet [K-Dur] 10 meq PO DAILY #30 tablet 08/06/20
== END 2020-08-06 12:20 | disposition home health service (06) | DRG 435 ==
PROVIDERS: Internal Medicine; Nurse Practitioner Family; Admitting Provider Family Medicine
DX: C78.7 Secondary malignant neoplasm of liver and intrahepatic bile duct (principal); E43 Unspecified severe protein-calorie malnutrition; R62.7 Adult failure to thrive; E83.52 Hypercalcemia; E78.5 Hyperlipidemia, unspecified; I10 Essential (primary) hypertension; R91.1 Solitary pulmonary nodule; Z66 Do not resuscitate; K76.9 Liver disease, unspecified; N40.0 Benign prostatic hyperplasia without lower urinary tract symptoms; N28.1 Cyst of kidney, acquired; C80.1 Malignant (primary) neoplasm, unspecified; W18.30XA Fall on same level, unspecified, initial encounter; F17.210 Nicotine dependence, cigarettes, uncomplicated; Z86.011 Personal history of benign neoplasm of the brain; Z68.22 Body mass index [BMI] 22.0-22.9, adult; Z79.899 Other long term (current) drug therapy
CPT/HCPCS: 71260; 77012; 80048; 80053; 82105; 82378; 82550; 83615; 83735; 83970; 84100; 85025; 85610; 85730; 86301; 88172; 88305; 88313; 88325; 88341; 88342; 93005; 97110; 97163; 97166; 97530; 97535; 97802; 99155; 99156; 99251; 99406; J3489; J7030; Q9967; A4216; G0463